=== PATIENT | female | born 1975 | race Caucasian/White ===

== ENCOUNTER 2024-06-23 13:55 | Inpatient (IN) ==
--- NOTE | 2024-06-23 14:50 | XRay Report ---
XR chest 1V portable HISTORY: 48 years-old Female neuro deficit, acute stroke suspected acute strokelike symptoms COMPARISON: None TECHNIQUE: AP view of the chest FINDINGS: Cardiac silhouette is enlarged. Dual lead left subclavian pacer. An electronic device projects over t he left heart border. No pneumothorax, pleural effusion, airspace consolidation or pulmonary edema. B ones appear intact. IMPRESSION: No acute process. ACT 112: Negative or not required by law. The above report was generated using voice recognition software. It may contain grammatical, syntax o r spelling errors. Electronically signed by: Eduardo Feliciano M.D. 06/23/2024 2:48 PM
[2024-06-23 14:51] LABS: Basophils # (auto) 0.01 K/uL (0.00-0.20); Basophils % (auto) 0.2 %; Hematocrit (blood only) 40.6 % (37.0-47.0); Hemoglobin 12.7 g/dl (12.0-16.0); Immature Granulocytes # (auto) 0.01 K/uL (0.01-0.20); Immature Granulocytes % (auto) 0.2 %; Lymphocytes # (auto) 1.44 K/uL (1.20-3.40); Lymphocytes % (auto) 28.1 %; Mean Corpuscular Hemoglobin 28.2 pg (25.0-34.0); Mean Corpuscular Hgb Conc 31.3 g/dL (32.0-36.0); Mean Corpuscular Volume 90.2 fL (80.0-100.0); Mean Platelet Volume 10.7 fL (9.4-12.4); Monocytes # (auto) 0.49 K/uL (0.11-0.59); Monocytes % (auto) 9.6 %; Neutrophils # (auto) 3.18 K/uL (1.40-6.50); Neutrophils % (auto) 61.9 %; Platelet Count 269 K/uL (130-400); RDW Coefficient of Variation 14.4 % (11.5-14.5); RDW Standard Deviation 47.7 fL (36.4-46.3); White Blood Count 5.13 K/ul (4.8-10.8)
[2024-06-23 15:12] LABS: Albumin Globulin Ratio 1.7 (0.9-2); BUN Creatinine Ratio 16.7 (10-20); Bilirubin,Total 0.3 mg/dl (0.2-1.0); Calcium 8.8 mg/dl (8.6-10.3); Creatinine Clr Calc Pharmacy 125.4 ml/min; Globulin 2.4 gm/dl (2.5-4.0); Potassium 4.1 mmol/L (3.5-5.1); Total Protein 6.4 gm/dl (6.0-8.3)
[2024-06-23 15:19] LABS: Troponin I High Sensitivity 5.6 pg/ml (0-14)
--- NOTE | 2024-06-23 15:22 | Emergency Department Note ---
History of Present Illness General Chief complaint: TIA Symptoms Stated complaint: CHEST PAIN, PACE MAKER, LT FACE DROOPING Time Seen by Provider: 06/23/24 14:16 Source: patient, family, RN notes reviewed and old records reviewed (Did review some old records she had from recent visit in [place]) Mode of arrival: ambulatory Limitations: no limitations History of Present Illness Maximum Pain Intensity: 6 This patient is a 48-year-old female who comes in after having chest pain as well as some facial droop. She had a pacemaker placed and do boys this past week feels like it swollen around it she has pain along the pacemaker up the neck and down the arm. She has having chest pain this been going on chronically she noticed around 930 last night she felt like she was weak in the lower left side of her face. No shortness of breath no nausea vomit no fever chills she is on Eliquis for A-fib no fall or trauma she says she feels little tingling in her left arm the feels sleepy. No change in vision. She does have a complex medical history as well. She has never been to this hospital before. Home Medications Medication Instructions Recorded Confirmed Type apixaban 5 mg tablet (Eliquis) 5 mg PO BID 06/23/24 06/23/24 History aripiprazole 15 mg tablet 15 mg PO QAM 06/23/24 06/23/24 History azelastine 137 mcg (0.1 %) nasal 137 mcg intranasal BID 06/23/24 06/23/24 History spray sozfrgrvna-ohhkfznirlxfl-dcrilive See Rx Instructions .Route 06/23/24 06/23/24 History 50 mg-325 mg-40 mg tablet .COMPLEX PRN Headache cetirizine 10 mg tablet See Rx Instructions .Route .COMPLEX 06/23/24 06/23/24 History cholecalciferol (vitamin D3) 50 See Rx Instructions .Route .COMPLEX 06/23/24 06/23/24 History mcg (2,000 unit) capsule (Vitamin D3) clonazepam 0.5 mg tablet See Rx Instructions .Route .COMPLEX 06/23/24 06/23/24 History cyanocobalamin (vitamin B-12) See Rx Instructions .Route .COMPLEX 06/23/24 06/23/24 History 1,000 mcg/mL injection solution duloxetine 60 mg capsule,delayed See Rx Instructions .Route .COMPLEX 06/23/24 06/23/24 History release epinephrine 0.3 mg/0.3 mL See Rx Instructions .Route 06/23/24 06/23/24 History injection, auto-injector .COMPLEX PRN Allergy Symptoms folic acid 1 mg tablet See Rx Instructions .Route .COMPLEX 06/23/24 06/23/24 History interferon beta-1a (albumin) 44 See Rx Instructions .Route .COMPLEX 06/23/24 06/23/24 History mcg/0.5 mL subcutaneous pen injector (Rebif Rebidose) leflunomide 20 mg tablet See Rx Instructions .Route .COMPLEX 06/23/24 06/23/24 History levothyroxine 137 mcg tablet See Rx Instructions .Route .COMPLEX 06/23/24 06/23/24 History lorazepam 0.5 mg tablet See Rx Instructions .Route .COMPLEX 06/23/24 06/23/24 History methocarbamol 500 mg tablet See Rx Instructions .Route .COMPLEX 06/23/24 06/23/24 History metoprolol succinate 25 mg See Rx Instructions .Route .COMPLEX 06/23/24 06/23/24 History tablet,extended release 24 hr modafinil 200 mg tablet See Rx Instructions .Route .COMPLEX 06/23/24 06/23/24 History mometasone-formoterol HFA 100 See Rx Instructions .Route .COMPLEX 06/23/24 06/23/24 History mcg-5 mcg/actuation aerosol inhaler (Dulera) montelukast 10 mg tablet See Rx Instructions .Route .COMPLEX 06/23/24 06/23/24 History omeprazole 40 mg capsule,delayed See Rx Instructions .Route .COMPLEX 06/23/24 06/23/24 History release ondansetron 8 mg disintegrating See Rx Instructions .Route .COMPLEX 06/23/24 06/23/24 History tablet potassium chloride 20 mEq See Rx Instructions .Route .COMPLEX 06/23/24 06/23/24 History tablet,extended release(part/cryst) pregabalin 150 mg capsule See Rx Instructions .Route .COMPLEX 06/23/24 06/23/24 History rimegepant 75 mg disintegrating See Rx Instructions .Route .COMPLEX 06/23/24 06/23/24 History tablet (Nurtec ODT) ropinirole 1 mg tablet See Rx Instructions .Route .COMPLEX 06/23/24 06/23/24 History topiramate 100 mg tablet See Rx Instructions .Route .COMPLEX 06/23/24 06/23/24 History trazodone 150 mg tablet See Rx Instructions .Route .COMPLEX 06/23/24 06/23/24 History trospium 20 mg tablet See Rx Instructions .Route .COMPLEX 06/23/24 06/23/24 History Allergies Allergy/AdvReac Type Severity Reaction Status Date / Time codeine Allergy Severe Anaphylaxis Unverified 06/23/24 16:17 methimazole Allergy Severe Unknown Unverified 06/23/24 16:17 Sulfa (Sulfonamide Allergy Severe Hives Unverified 06/23/24 16:17 Antibiotics) glatiramer (copolymer 1) Allergy Mild Unknown Unverified 06/23/24 16:17 [From Copaxone] hydroxychloroquine AdvReac Severe Blurry Unverified 06/23/24 16:17 [From Plaquenil] Vision NSAIDS (Non-Steroidal AdvReac Severe Unknown Unverified 06/23/24 16:17 Anti-Inflamma Past Med/Surg History Problem List Pacemaker HTN (hypertension) Hypothyroidism Rheumatoid arthritis A-fib Multiple sclerosis Left facial numbness Facial droop Current use of jail anticoagulation (Acute) Chest pain (Acute) Social History Smoking Status: Never smoker Feels Safe at Home: Yes Immunizations: Past med historyasthma, MS, rheumatoid arthritis, gastric bypass, trigeminal neuralgia Allergiesmultiple medications including codeine, sulfa, Copaxone, Plaquenil, Enbrel. Denies any allergies or issues with IV contrast Social history she has a doctor in [place] Review of Systems A total of 10 systems reviewed and were otherwise negative Physical Exam Vital Signs Vital Signs - 24 hr 06/23/24 13:56 06/23/24 16:00 06/23/24 16:13 Temperature 36 C L Temperature Source Temporal Artery Scan Pulse Rate 81 69 Pulse Rate [Apical] 63 Respiratory Rate 18 18 Respiratory Effort / Characteristics Non-Labored Respiratory Depth Normal Respiratory Pattern Regular Blood Pressure 164/94 H Blood Pressure [Right Arm] 142/86 H Blood Pressure Mean 117 Blood Pressure Mean [Right Arm] 104 Pulse Oximetry 99 99 Oxygen Delivery Method Room Air Room Air Sepsis Recent Fever Within 48 Hours No Sepsis New/Unexplained Change in Mental Status N/A Sepsis Action Taken by Nursing No Action Required General: Well developed well nourished middle-age female who appears in no acute distress, breathing comfortably on room air. Normal speech HEENT: Normal cephalic atraumatic. Pupils are equal round and reactive to light. Extraocular movements are intact. Oropharynx is pink with moist mucous membranes. No swelling of the mouth lips or tongue. Questionable facial droop on the left. Neck: Supple with a midline trachea. No meningeal signs or stiffness, no JVD or bruits. No Stridor. Chest: Clear to auscultation bilaterally. No wheezes or rhonchi. No increased work of breathing. She has a pacemaker in left chest multiple Steri-Strips on top of it does appear to be mildly swollen but no note not overtly red or tender. Heart: Regular rate and rhythm without murmurs or gallops. Abdomen: Soft nontender, nondistended without rebound guarding or rigidity. Extremities: No cyanosis clubbing or edema. No calf tenderness or assymetry Spine/Back. Non tender to palpation. No CVA tenderness Skin: Good turgor without rashes. Neurologic exam: Possible mild weakness on the left may be more from swelling. Cranial nerves two through 12 are intact. Motor and sensation are intact and symmetrical throughout. Course Administered Medications Discontinued Medications Ioversol (Optiray 320 125ml) 119 ml IV ONCE ONE Stop: 06/23/24 15:36 Last Admin: 06/23/24 15:36 Dose: 119 ml Documented By: CHANDA Medical Decision Making Differential Diagnosis Complication related to pacemaker placement, DVT, vascular disease, stroke, MS, electrolyte or metabolic abnormality, infection Medical Records Attestation: I reviewed the patient's medical records. Home Medications Current Medication List: was personally reviewed by me Laboratory Data Attestation: I reviewed the patient's lab results. 06/23/24 14:12 06/23/24 14:12 Lab Results 06/23/24 06/23/24 Range/Units 14:12 14:14 WBC 5.13 (4.8-10.8) K/ul RBC 4.50 (4.20-5.40) M/uL Hgb 12.7 (12.0-16.0) g/dl Hct 40.6 (37.0-47.0) % MCV 90.2 (80.0-100.0) fL MCH 28.2 (25.0-34.0) pg MCHC 31.3 L (32.0-36.0) g/dL RDW Std Deviation 47.7 H (36.4-46.3) fL RDW Coeff of Myrna 14.4 (11.5-14.5) % Plt Count 269 (130-400) K/uL MPV 10.7 (9.4-12.4) fL Immature Gran % (Auto) 0.2 % Neut % (Auto) 61.9 % Lymph % (Auto) 28.1 % [place] % (Auto) 9.6 % Eos % (Auto) 0.0 % Baso % (Auto) 0.2 % Neut # (Auto) 3.18 (1.40-6.50) K/uL Lymph # (Auto) 1.44 (1.20-3.40) K/uL [place] # (Auto) 0.49 (0.11-0.59) K/uL Eos # (Auto) 0.00 (0.00-0.50) K/uL Baso # (Auto) 0.01 (0.00-0.20) K/uL Immature Gran # (Auto) 0.01 (0.01-0.20) K/uL PT 10.0 (9.0-12.0) Seconds INR 0.9 (0.9-1.1) APTT 30 (21-31) Seconds PTT Ratio 1.1 Sodium 141 (136-145) mmol/L Potassium 4.1 (3.5-5.1) mmol/L Chloride 116 H (98-107) mmol/L Carbon Dioxide 21 (21-32) mmol/L Anion Gap 4 (3-11) BUN 10 (6-23) mg/dl Creatinine 0.60 (0.6-1.2) mg/dl Est Cr Clr Drug Dosing 125.4 ml/min eGFR 111.34 BUN/Creatinine Ratio 16.7 (10-20) Glucose 75 (70-99(Fasting)) mg/dl POC Glucose 77 (70-99) mg/dl Calcium 8.8 (8.6-10.3) mg/dl Magnesium 2.0 (1.7-2.4) mg/dl Total Bilirubin 0.3 (0.2-1.0) mg/dl AST 21 (13-39) U/L ALT 24 (7-52) U/L Alkaline Phosphatase 104 (34-104) U/L Troponin I High Sens 5.6 (0-14) pg/ml Total Protein 6.4 (6.0-8.3) gm/dl Albumin 4.0 (3.4-5.0) gm/dl Globulin 2.4 L (2.5-4.0) gm/dl Albumin/Globulin Ratio 1.7 (0.9-2) Imaging Data Attestation: I personally reviewed and interpreted this imaging study as follows: My Impression: Chest x-raypacemaker in place no acute infiltrate, failure, pneumothorax seen Radiologist's Impression: Chest X-Ray 06/23/24 14:26 XR chest 1V portable HISTORY: 48 years-old Female neuro deficit, acute stroke suspected acute strokelike symptoms COMPARISON: None TECHNIQUE: AP view of the chest FINDINGS: Cardiac silhouette is enlarged. Dual lead left subclavian pacer. An electronic device projects over the left heart border. No pneumothorax, pleural effusion, airspace consolidation or pulmonary edema. Bones appear intact. IMPRESSION: No acute process. ACT 112: Negative or not required by law. The above report was generated using voice recognition software. It may contain grammatical, syntax or spelling errors. Electronically signed by: Eduardo Feliciano M.D. 06/23/2024 2:[address] 06/23/24 14:26 CT angio head w con, CT head/brain wo con, CT angio neck with con CLINICAL HISTORY: 48 years-old Female with neuro deficit, acute stroke suspected. Acute stroke like symptoms COMPARISON STUDY: None TECHNIQUE: Unenhanced axial CT scan of the brain is performed. Subsequently, following the IV administration of 119 cc of Optiray, CT angiogram of the head and neck was performed. Images are reviewed in the axial, sagittal, and coronal planes. 3-D MIPS images are created and assessed. IV contrast was administered without complication. All measurements were obtained according to NASCET criteria. A dose lowering technique was utilized adhering to the principles of ALARA. FINDINGS: CT BRAIN: There is no acute intracranial hemorrhage, midline shift, hydrocephalus, intracranial mass, territorial ischemia or abnormal extra-axial collections. No abnormal intra-axial or extra-axial enhancement. Mastoid air cells and middle ear cavities are clear. No calvarial fracture. Mild polypoid mucosal thickening of the right maxillary and sphenoid sinuses.. CT ANGIOGRAM OF THE HEAD AND NECK: Three-vessel morphology of the thoracic aortic arch. Patency of the innominate and subclavian arteries. Patency of the common and internal carotid arteries. Bilateral anterior and middle cerebral arteries are also patent. The vertebrobasilar system and posterior cerebral arteries are widely patent. There is no aneurysm, high-grade stenosis, or proximal branch occlusion identified. Dural sinuses appear patent. The lung apices appear clear. Developmental incomplete bony fusion involves the arch of C1. No pneumothorax. Mild bronchial wall thickening. 3 mm likely benign right upper lobe pulmonary nodule on image 13 series 9 with additional 3 mm nodule of the left upper lobe on image 15 series 9. Left subclavian pacer with adjacent inflammatory stranding and trace subcutaneous emphysema, likely postprocedural. IMPRESSION: 1. Unremarkable CTA of the head and neck. 2. No acute intracranial abnormality. 3. Please refer to the same day CTA of the chest for additional findings. 4. Mild paranasal sinus disease. ACT 112: Negative or not required by law. The above report was generated using voice recognition software. It may contain grammatical, syntax or spelling errors. Electronically signed by: Eduardo Feliciano M.D. 06/23/2024 4:20 PM Head CTA 06/23/24 14:26 CT angio head w con, CT head/brain wo con, CT angio neck with con CLINICAL HISTORY: 48 years-old Female with neuro deficit, acute stroke suspected. Acute stroke like symptoms COMPARISON STUDY: None TECHNIQUE: Unenhanced axial CT scan of the brain is performed. Subsequently, following the IV administration of 119 cc of Optiray, CT angiogram of the head and neck was performed. Images are reviewed in the axial, sagittal, and coronal planes. 3-D MIPS images are created and assessed. IV contrast was administered without complication. All measurements were obtained according to NASCET criteria. A dose lowering technique was utilized adhering to the principles of ALARA. FINDINGS: CT BRAIN: There is no acute intracranial hemorrhage, midline shift, hydrocephalus, intracranial mass, territorial ischemia or abnormal extra-axial collections. No abnormal intra-axial or extra-axial enhancement. Mastoid air cells and middle ear cavities are clear. No calvarial fracture. Mild polypoid mucosal thickening of the right maxillary and sphenoid sinuses.. CT ANGIOGRAM OF THE HEAD AND NECK: Three-vessel morphology of the thoracic aortic arch. Patency of the innominate and subclavian arteries. Patency of the common and internal carotid arteries. Bilateral anterior and middle cerebral arteries are also patent. The vertebrobasilar system and posterior cerebral arteries are widely patent. There is no aneurysm, high-grade stenosis, or proximal branch occlusion identified. Dural sinuses appear patent. The lung apices appear clear. Developmental incomplete bony fusion involves the arch of C1. No pneumothorax. Mild bronchial wall thickening. 3 mm likely benign right upper lobe pulmonary nodule on image 13 series 9 with additional 3 mm nodule of the left upper lobe on image 15 series 9. Left subclavian pacer with adjacent inflammatory stranding and trace subcutaneous emphysema, likely postprocedural. IMPRESSION: 1. Unremarkable CTA of the head and neck. 2. No acute intracranial abnormality. 3. Please refer to the same day CTA of the chest for additional findings. 4. Mild paranasal sinus disease. ACT 112: Negative or not required by law. The above report was generated using voice recognition software. It may contain grammatical, syntax or spelling errors. Electronically signed by: Eduardo Feliciano M.D. 06/23/2024 4:20 PM Neck CTA 06/23/24 14:26 CT angio head w con, CT head/brain wo con, CT angio neck with con CLINICAL HISTORY: 48 years-old Female with neuro deficit, acute stroke suspected. Acute stroke like symptoms COMPARISON STUDY: None TECHNIQUE: Unenhanced axial CT scan of the brain is performed. Subsequently, following the IV administration of 119 cc of Optiray, CT angiogram of the head and neck was performed. Images are reviewed in the axial, sagittal, and coronal planes. 3-D MIPS images are created and assessed. IV contrast was administered without complication. All measurements were obtained according to NASCET criteria. A dose lowering technique was utilized adhering to the principles of ALARA. FINDINGS: CT BRAIN: There is no acute intracranial hemorrhage, midline shift, hydrocephalus, intracranial mass, territorial ischemia or abnormal extra-axial collections. No abnormal intra-axial or extra-axial enhancement. Mastoid air cells and middle ear cavities are clear. No calvarial fracture. Mild polypoid mucosal thickening of the right maxillary and sphenoid sinuses.. CT ANGIOGRAM OF THE HEAD AND NECK: Three-vessel morphology of the thoracic aortic arch. Patency of the innominate and subclavian arteries. Patency of the common and internal carotid arteries. Bilateral anterior and middle cerebral arteries are also patent. The vertebrobasilar system and posterior cerebral arteries are widely patent. There is no aneurysm, high-grade stenosis, or proximal branch occlusion identified. Dural sinuses appear patent. The lung apices appear clear. Developmental incomplete bony fusion involves the arch of C1. No pneumothorax. Mild bronchial wall thickening. 3 mm likely benign right upper lobe pulmonary nodule on image 13 series 9 with additional 3 mm nodule of the left upper lobe on image 15 series 9. Left subclavian pacer with adjacent inflammatory stranding and trace subcutaneous emphysema, likely postprocedural. IMPRESSION: 1. Unremarkable CTA of the head and neck. 2. No acute intracranial abnormality. 3. Please refer to the same day CTA of the chest for additional findings. 4. Mild paranasal sinus disease. ACT 112: Negative or not required by law. The above report was generated using voice recognition software. It may contain grammatical, syntax or spelling errors. Electronically signed by: Eduardo Feliciano M.D. 06/23/2024 4:20 PM Chest CTA 06/23/24 14:35 CT angio chest PE protocol CT DOSE: 2099.25 mGy.cm HISTORY: 48 years-old Female with recent pacemaker placed, swell and left facial wea. Acute chest pain with recent pacemaker placement TECHNIQUE: Multiple CTA images of the chest were obtained after the intravenous administration of 119 ml Optiray. Coronal and sagittal MIPS were obtained from the axial data set and were submitted for review. All measurements were obtained according to NASCET criteria. A dose lowering technique was utilized adhering to the principles of ALARA. COMPARISON: Chest radiograph of same day FINDINGS: CTA: Dual-lead left subclavian pacer. Electronic implantable device noted within the subcutaneous tissues of the left chest wall. Heart is borderline enlarged. No pericardial effusion. No thoracic aortic aneurysm or dissection. Central pulmonary emboli identified. The segmental and subsegmental branches are not well visualized secondary to contrast bolus timing. CT CHEST: Subcutaneous edema of the left chest wall with small focus of subcutaneous emphysema, likely postoperative. No pneumothorax, pleural effusion, airspace consolidation, overt pulmonary edema suspicious pulmonary nodule or mass. Mild rotator wall thickening. No acute upper abdominal abnormality-bypass. Nonspecific 11 mm arterially enhancing left hepatic lobe lesion on image 25, possibly a flash filling hemangioma. Cholecystectomy. Fracture. IMPRESSION: 1. Findings compatible with recent left subclavian cardiac pacer placement with expected postoperative changes. No postoperative fluid collection. 2. No pulmonary emboli identified. ACT 112: Negative or not required by law. The above report was generated using voice recognition software. It may contain grammatical, syntax or spelling errors. Electronically signed by: Eduardo Feliciano M.D. 06/23/2024 4:07 PM ECG Data Attestation: I personally reviewed and interpreted this ECG as follows: Indication: + chest pain Rate (beats per minute): 75 Rhythm: + normal sinus ECG Intervals/blocks: + Normal QRS, + Normal QT, + Normal RI and + Normal QT-c ECG [place]: + Normal ECG ST segments: + Normal ST segments ECG Findings: + Other (Somewhat low voltage) Comparison ECG Date: no prior available MDM Narrative This patient comes in described above. She was placed on a potline monitor and room B5 she is a complex history and several different complaints. she recently a pacemaker placed and she also has a history of MS. She feels she has some weakness on her face she is also had some pain along the chest that seems to be mostly postop there is some swelling but it is not overtly red she has no fever here. I did a extensive workup including neuroimaging as well as an image of the vasculature of the the neck as well as a chest CT to make sure there is no vascular issues as well as neurologic issues or infection. IV access was established. EKG shows no ischemic changes or ectopy. Chest x-ray shows no pneumothorax ,CHF, or pneumonia. I do not think this is likely a stroke although that still in the differential. Even if it were to be a stroke , she is outside the lytic window as her last known well was 930 additionally. she is a contraindication for lytics and the fact that she is on a blood thinner. Troponin was normal. She has no white count or fever to suggest infection. she has no significant anemia. She has no significant electrolyte or metabolic abnormalities. CAT scan of her head as well as CT angiography of the head and neck do not show any acute neuro or vascular issues. CT angio of the chest shows no PE or any significant abnormalities along with the pacemaker. I went and talked to her she has been having continuing chest pain and also some tingling in her neck and arm. She also feels like she is numb in the left side of her face. She may need a further neuro or cardiac workup and further evaluation. I have discussed the case at length in consultation with Dr. Walsh, who is the [facility] hospitalist. The patient will be admitted/observed for these measures Continuous cardiac monitoring: Orders placed in EMR for continuous potline monitor: Upon my evaluation patient noted to be normal sinus rhythm rate of 70 Impression & Plan Chest pain, Current use of remote computer terminal operator anticoagulation, Pacemaker, Left facial numbness Discharge Plan Visit Data Chief Complaint: TIA Symptoms Stated Complaint: CHEST PAIN, PACE MAKER, LT FACE DROOPING ED Provider: Lucien Solano Discharge Problem: Chest pain, Current use of remote computer terminal operator anticoagulation, Pacemaker, Left facial numbness Forms Stand Alone Forms: My [facility] Prescriptions Prescriptions: No Action methocarbamol 500 mg tablet See Rx Instructions .ROUTE .COMPLEX Rx Instructions: Take 1 tablet by mouth twice a day levothyroxine 137 mcg tablet See Rx Instructions .ROUTE .COMPLEX Rx Instructions: TAKE ONE TABLET BY MOUTH DAILY ropinirole 1 mg tablet See Rx Instructions .ROUTE .COMPLEX Rx Instructions: Take 1 tablet by mouth twice a day cetirizine 10 mg tablet See Rx Instructions .ROUTE .COMPLEX Rx Instructions: TAKE 1 TABLET BY MOUTH DAILY clonazepam 0.5 mg tablet See Rx Instructions .ROUTE .COMPLEX Rx Instructions: Take 1 tablet by mouth twice a day omeprazole 40 mg capsule,delayed release(DR/EC) See Rx Instructions .ROUTE .COMPLEX Rx Instructions: Take 1 capsule by mouth once a day 30 MINUTES PRIOR TO BREAKFAST EVERY DAY. leflunomide 20 mg tablet See Rx Instructions .ROUTE .COMPLEX Rx Instructions: TAKE 1 TABLET BY MOUTH DAILY WITH FOOD gtyxnufnow-fdlyqzuarsgci-sjjm 50-325-40 mg tablet See Rx Instructions .ROUTE .COMPLEX PRN (Reason: Headache) Rx Instructions: TAKE 1 TO 2 TABLETS BY MOUTH EVERY 4 HOURS NEEDED FOR MIGRAINES. MAXIMUM 6 TABLETS PER DAY. CONTINUING THERAPY ondansetron 8 mg tablet,disintegrating See Rx Instructions .ROUTE .COMPLEX Rx Instructions: DISSOLVE 1 TABLET ON TONGUE EVERY 8 HOURS NEEDED FOR NAUSEA potassium chloride 20 mEq tablet,ER particles/crystals See Rx Instructions .ROUTE .COMPLEX Rx Instructions: TAKE ONE TABLET TWICE DAILY modafinil 200 mg tablet See Rx Instructions .ROUTE .COMPLEX Rx Instructions: Take 1/2 tablet by mouth every morning lorazepam 0.5 mg tablet See Rx Instructions .ROUTE .COMPLEX Rx Instructions: TAKE ONE TABLET BY MOUTH TWICE DAILY FOR ANXIETY AND TAKE 1 OR 2 TABLETS AT BEDTIME FOR SLEEP cyanocobalamin (vitamin B-12) 1,000 mcg/mL solution See Rx Instructions .ROUTE .COMPLEX Rx Instructions: inject 1ml subcutaneousley ONCE WEEKLY trazodone 150 mg tablet See Rx Instructions .ROUTE .COMPLEX Rx Instructions: Take 1 tablet by mouth every night at bedtime as needed for sleep folic acid 1 mg tablet See Rx Instructions .ROUTE .COMPLEX Rx Instructions: TAKE ONE TABLET DAILY montelukast 10 mg tablet See Rx Instructions .ROUTE .COMPLEX Rx Instructions: Take 1 tablet by mouth once a day metoprolol succinate 25 mg tablet extended release 24 hr See Rx Instructions .ROUTE .COMPLEX Rx Instructions: TAKE ONE TABLET BY MOUTH DAILY azelastine 137 mcg (0.1 %) spray,non-aerosol 137 mcg intranasal BID epinephrine 0.3 mg/0.3 mL auto-injector See Rx Instructions .ROUTE .COMPLEX PRN (Reason: Allergy Symptoms) Rx Instructions: EPI PEN topiramate 100 mg tablet See Rx Instructions .ROUTE .COMPLEX Rx Instructions: TAKE ONE TABLET BY MOUTH TWICE DAILY aripiprazole 15 mg tablet 15 mg PO QAM trospium 20 mg tablet See Rx Instructions .ROUTE .COMPLEX Rx Instructions: TAKE ONE TABLET BY MOUTH TWICE DAILY duloxetine 60 mg capsule,delayed release(DR/EC) See Rx Instructions .ROUTE .COMPLEX Rx Instructions: Take 1 capsule by mouth twice a day pregabalin 150 mg capsule See Rx Instructions .ROUTE .COMPLEX Rx Instructions: TAKE ONE CAPSULE BY MOUTH TWICE DAILY cholecalciferol (vitamin D3) [Vitamin D3] 50 mcg (2,000 unit) capsule See Rx Instructions .ROUTE .COMPLEX Rx Instructions: TAKE ONE CAPSULE BY MOUTH DAILY Dulera 100-5 mcg/actuation HFA aerosol inhaler See Rx Instructions .ROUTE .COMPLEX Rx Instructions: Inhale 1 puff as directed twice a day Rinse mouth with water and spit after use. Eliquis 5 mg tablet 5 mg PO BID Rebif Rebidose 44 mcg/0.5 mL pen injector See Rx Instructions .ROUTE .COMPLEX Rx Instructions: INJECT BID A WEEK Nurtec ODT 75 mg tablet,disintegrating See Rx Instructions .ROUTE .COMPLEX Rx Instructions: TAKE 1 TABLET BY MOUTH EVERY OTHER DAY Referrals Referrals: Brant Magaña MD [Primary Care Provider] - Discharge Problem: Chest pain Qualifiers: Chest pain type: unspecified Qualified Code(s): R07.9 - Chest pain, unspecified
[2024-06-23 15:35] LABS: INR 0.9 (0.9-1.1); Partial Thromboplastin Ratio 1.1; Partial Thromboplastin Time 30 Seconds (21-31)
[2024-06-23] MEDS: OPTIRAY 320 125ml IV ONE (15:36)
--- NOTE | 2024-06-23 16:09 | CT Scan Report ---
CT angio chest PE protocol CT DOSE: 2099.25 mGy.cm HISTORY: 48 years-old Female with recent pacemaker placed, swell and left facial wea. Acute chest p ain with recent pacemaker placement TECHNIQUE: Multiple CTA images of the chest were obtained after the intravenous administration of 119 ml Optiray. Coronal and sagittal MIPS were obtained from the axial data set and were submitted for review. All measurements were obtained according to NASCET criteria. A dose lowering technique was u tilized adhering to the principles of ALARA. COMPARISON: Chest radiograph of same day FINDINGS: CTA: Dual-lead left subclavian pacer. Electronic implantable device noted within the subcutaneous tissues of the left chest wall. Heart is borderline enlarged. No pericardial effusion. No thoracic aortic ane urysm or dissection. Central pulmonary emboli identified. The segmental and subsegmental branches are not well visualized secondary to contrast bolus timing. CT CHEST: Subcutaneous edema of the left chest wall with small focus of subcutaneous emphysema, likely postoper ative. No pneumothorax, pleural effusion, airspace consolidation, overt pulmonary edema suspicious pu lmonary nodule or mass. Mild rotator wall thickening. No acute upper abdominal abnormality-bypass. No nspecific 11 mm arterially enhancing left hepatic lobe lesion on image 25, possibly a flash filling h emangioma. Cholecystectomy. Fracture. IMPRESSION: 1. Findings compatible with recent left subclavian cardiac pacer placement with expected postoperativ e changes. No postoperative fluid collection. 2. No pulmonary emboli identified. ACT 112: Negative or not required by law. The above report was generated using voice recognition software. It may contain grammatical, syntax o r spelling errors. Electronically signed by: Eduardo Feliciano M.D. 06/23/2024 4:07 PM
--- NOTE | 2024-06-23 16:22 | CT Scan Report ---
CT angio head w con, CT head/brain wo con, CT angio neck with con CLINICAL HISTORY: 48 years-old Female with neuro deficit, acute stroke suspected. Acute stroke lik e symptoms COMPARISON STUDY: None TECHNIQUE: Unenhanced axial CT scan of the brain is performed. Subsequently, following the IV adminis tration of 119 cc of Optiray, CT angiogram of the head and neck was performed. Images are reviewed in the axial, sagittal, and coronal planes. 3-D MIPS images are created and assessed. IV contrast was a dministered without complication. All measurements were obtained according to NASCET criteria. A dose lowering technique was utilized adhering to the principles of ALARA. FINDINGS: CT BRAIN: There is no acute intracranial hemorrhage, midline shift, hydrocephalus, intracranial mass, territori al ischemia or abnormal extra-axial collections. No abnormal intra-axial or extra-axial enhancement. Mastoid air cells and middle ear cavities are clear. No calvarial fracture. Mild polypoid mucosal th ickening of the right maxillary and sphenoid sinuses.. CT ANGIOGRAM OF THE HEAD AND NECK: Three-vessel morphology of the thoracic aortic arch. Patency of the innominate and subclavian arterie s. Patency of the common and internal carotid arteries. Bilateral anterior and middle cerebral arteri es are also patent. The vertebrobasilar system and posterior cerebral arteries are widely patent. The re is no aneurysm, high-grade stenosis, or proximal branch occlusion identified. Dural sinuses appear patent. The lung apices appear clear. Developmental incomplete bony fusion involves the arch of C1. No pneumo thorax. Mild bronchial wall thickening. 3 mm likely benign right upper lobe pulmonary nodule on image 13 series 9 with additional 3 mm nodule of the left upper lobe on image 15 series 9. Left subclavian pacer with adjacent inflammatory stranding and trace subcutaneous emphysema, likely postprocedural. IMPRESSION: 1. Unremarkable CTA of the head and neck. 2. No acute intracranial abnormality. 3. Please refer to the same day CTA of the chest for additional findings. 4. Mild paranasal sinus disease. ACT 112: Negative or not required by law. The above report was generated using voice recognition software. It may contain grammatical, syntax o r spelling errors. Electronically signed by: Eduardo Feliciano M.D. 06/23/2024 4:20 PM
--- NOTE | 2024-06-23 18:12 | History & Physical Report ---
Date of Service June 23, 2024 Assessment & Plan (1) Facial droop: (2) Left facial numbness: (3) Multiple sclerosis: (4) A-fib: (5) Rheumatoid arthritis: (6) Hypothyroidism: (7) HTN (hypertension): (8) Pacemaker: Plan: Plan This is a 48 y/o with complex medical history who comes in with multiple complaints including facial weakness/numbness, L arm numbness, and pain at site of pacemaker recently placed among other issues. 1) Facial droop/numbness and tingling/arm numbness and tingling -- subacute CVA or TIA vs. Lopez's Palsy vs. MS or migraine related symptoms unclear at this time -Will monitor on tele for now -Cont neuro checks -Discussed with Dr. Raza (neuro) -- he agreed that it was reasonable to proceed with getting an MRI with and without contrast to better determine cause of symptoms given the MS history -MRI w and wo ordered. MRI card for pacemaker is copied in this note -Cont thiamine and folic acid 2) s/p recent placement of pacemaker -- pain at site of PM, no redness, no drainage, no findings on imaging -Monitor incision site for now -- if any sign of infection, would need to cover with abx and likely contact the Cardiology at [place] -Pain control as needed 3) A fib (controlled) -Continue Eliquis 5 mg bid -Metoprolol 25 mg BID 4) MS -Patient is currently on Rebif Rebidose 44 mcg three times weekly per her medication list; may need to bring from home if not available in pharmacy 5) RA -Will continue home Leflunomide 20 mg daily 6) Hypothyroidism -Continue Synthroid 137 mcg daily 7) Mood disorder -- anxiety/depression/Psychiatric dx -Continue Abilify 15 mg daily -Cont Duloxetine 60 mg daily -Cont Klonopin 0.5 BID -Cont Modafinil 100 mg daily -Cont Trazodone 150 mg daily -Patient states she does not have a dx of seizures anymore, but on Topiramate 100 mg BID, presumably for mood stabilization 8) DVT PPx -- On Eliquis 9) Code Status -- Full code History of Present Illness Chief Complaint: Facial numbness/droop Primary Care Provider: Brant Magaña MD This is a 48-year-old female with extensive past medical history including MS (on Rebif Rebido), rheumatoid arthritis (on leflunomide), A-fib (on Eliquis), recent pacemaker placement for syncope/heart block (?), hypothyroidism, migraine headaches, hypertension, and mood disorder among other medical conditions who comes in with multiple complaints including weakness in the face, numbness and tingling of the face and left arm,left-sided facial droop, andpain in chest at site of recent pacemaker. Patient's recent history of the following: She states that last week she was at some sort of festival or event where she had an episode of syncope. She has a loop recorder which showed a sinus pause. She was taking to [facility], and after workup was released. She then contacted her groover and turner on Tuesday, and he had her brought in and had a pacemaker placed on Tuesday. She was discharged on Tuesday afternoon in stable condition. She states she was doing okay at home other than some pain in the left chest at the site of the pacemaker. Last night she states that she developed some weakness, possibly numbness and tingling of her face, as well as possibly in the left arm. She also had some pain in the left chest that she thought was worsening. And she noted possible facial droop (though this may have been noticed this morning). Patient denies any headache. Denies any visual disturbance or visual loss. Denies any difficulty with speech or swallowing. Denies any focal weakness in 1 arm or 1 leg. Denies chest pain. Patient denies any fevers, chills, nausea, vomiting, diarrhea. While she does note some pain at the pacemaker site, there is no significant redness there. There is no drainage. There is no purulence. Patient notes that her last MS flare was in approximately 2020, and she has otherwise been stable on her medications since then. Allergies Allergy/AdvReac Type Severity Reaction Status Date / Time codeine Allergy Severe Anaphylaxis Unverified 06/23/24 16:17 methimazole Allergy Severe Unknown Unverified 06/23/24 16:17 Sulfa (Sulfonamide Allergy Severe Hives Unverified 06/23/24 16:17 Antibiotics) glatiramer (copolymer 1) Allergy Mild Unknown Unverified 06/23/24 16:17 [From Copaxone] hydroxychloroquine AdvReac Severe Blurry Unverified 06/23/24 16:17 [From Plaquenil] Vision NSAIDS (Non-Steroidal AdvReac Severe Unknown Unverified 06/23/24 16:17 Anti-Inflamma Home Medications Medication Instructions Recorded Confirmed Type apixaban 5 mg tablet (Eliquis) 5 mg PO BID 06/23/24 06/23/24 History aripiprazole 15 mg tablet 15 mg PO QAM 06/23/24 06/23/24 History azelastine 137 mcg (0.1 %) nasal 137 mcg intranasal BID 06/23/24 06/23/24 History spray [id number] See Rx Instructions .Route 06/23/24 06/23/24 History 50 mg-325 mg-40 mg tablet .COMPLEX PRN Headache cetirizine 10 mg tablet See Rx Instructions .Route .COMPLEX 06/23/24 06/23/24 History cholecalciferol (vitamin D3) 50 See Rx Instructions .Route .COMPLEX 06/23/24 06/23/24 History mcg (2,000 unit) capsule (Vitamin D3) clonazepam 0.5 mg tablet See Rx Instructions .Route .COMPLEX 06/23/24 06/23/24 History cyanocobalamin (vitamin B-12) See Rx Instructions .Route .COMPLEX 06/23/24 06/23/24 History 1,000 mcg/mL injection solution duloxetine 60 mg capsule,delayed See Rx Instructions .Route .COMPLEX 06/23/24 06/23/24 History release epinephrine 0.3 mg/0.3 mL See Rx Instructions .Route 06/23/24 06/23/24 History injection, auto-injector .COMPLEX PRN Allergy Symptoms folic acid 1 mg tablet See Rx Instructions .Route .COMPLEX 06/23/24 06/23/24 History interferon beta-1a (albumin) 44 See Rx Instructions .Route .COMPLEX 06/23/24 06/23/24 History mcg/0.5 mL subcutaneous pen injector (Rebif Rebidose) leflunomide 20 mg tablet See Rx Instructions .Route .COMPLEX 06/23/24 06/23/24 History levothyroxine 137 mcg tablet See Rx Instructions .Route .COMPLEX 06/23/24 06/23/24 History lorazepam 0.5 mg tablet See Rx Instructions .Route .COMPLEX 06/23/24 06/23/24 History methocarbamol 500 mg tablet See Rx Instructions .Route .COMPLEX 06/23/24 06/23/24 History metoprolol succinate 25 mg See Rx Instructions .Route .COMPLEX 06/23/24 06/23/24 History tablet,extended release 24 hr modafinil 200 mg tablet See Rx Instructions .Route .COMPLEX 06/23/24 06/23/24 History mometasone-formoterol HFA 100 See Rx Instructions .Route .COMPLEX 06/23/24 06/23/24 History mcg-5 mcg/actuation aerosol inhaler (Dulera) montelukast 10 mg tablet See Rx Instructions .Route .COMPLEX 06/23/24 06/23/24 History omeprazole 40 mg capsule,delayed See Rx Instructions .Route .COMPLEX 06/23/24 06/23/24 History release ondansetron 8 mg disintegrating See Rx Instructions .Route .COMPLEX 06/23/24 06/23/24 History tablet potassium chloride 20 mEq See Rx Instructions .Route .COMPLEX 06/23/24 06/23/24 History tablet,extended release(part/cryst) pregabalin 150 mg capsule See Rx Instructions .Route .COMPLEX 06/23/24 06/23/24 History rimegepant 75 mg disintegrating See Rx Instructions .Route .COMPLEX 06/23/24 06/23/24 History tablet (Nurtec ODT) ropinirole 1 mg tablet See Rx Instructions .Route .COMPLEX 06/23/24 06/23/24 History topiramate 100 mg tablet See Rx Instructions .Route .COMPLEX 06/23/24 06/23/24 History trazodone 150 mg tablet See Rx Instructions .Route .COMPLEX 06/23/24 06/23/24 History trospium 20 mg tablet See Rx Instructions .Route .COMPLEX 06/23/24 06/23/24 History Past Med/Surg History Problem List Pacemaker HTN (hypertension) Hypothyroidism Rheumatoid arthritis A-fib Multiple sclerosis Left facial numbness Facial droop Current use of intermediate anticoagulation (Acute) Chest pain (Acute) Social History Smoking Status: Never smoker Feels Safe at Home: Yes Review of Systems 2 Review of Systems: All systems reviewed & are unremarkable except as noted in HPI & below Cardiovascular: Additional Comments: Pain at pacemaker site Neurologic: L sided numbness/tingling/weakness, facial droop Physical Exam 2 Constitutional: WD/WN, vitals as above Eyes: PERRL, conjunctivae normal, anicteric sclerae ENMT: L sided facial droop. Patient unable to close mouth and puff cheeks Neck: trachea midline, no thyromegaly Respiratory: normal respiratory effort, lungs clear to auscultation Cardiovascular: RRR, no murmur, no edema L chest wall with pacemaker incision noted. Steri strips in place. No obvious redness. No wound dehiscence. No drainage. Gastrointestinal (Abdomen): normal bowel sounds, soft, nontender, no hepatosplenomegaly Musculoskeletal: no cyanosis or clubbing, extremities motor strength 5/5 Skin: no rashes, warm and dry Neurologic: L sided facial droop. Patient unable to close mouth and puff cheeks. No other focal findings. Psychiatric: A+Ox3, euthymic affect Results & Data Results & Data Vital Signs (Past 12 Hours) Vital Signs Temp Pulse Pulse Resp BP BP Pulse Ox 06/23/24 16:13 69 06/23/24 16:00 63 18 142/86 H 99 06/23/24 13:56 36 C L 81 18 164/94 H 99 O2 Del Method 06/23/24 16:13 06/23/24 16:00 Room Air 06/23/24 13:56 Room Air Laboratory Results 06/23/24 06/23/24 14:14 14:12 WBC 5.13 RBC 4.50 Hgb 12.7 Hct 40.6 MCV 90.2 MCH 28.2 MCHC 31.3 L RDW Std Deviation 47.7 H RDW Coeff of Myrna 14.4 Plt Count 269 MPV 10.7 Immature Gran % (Auto) 0.2 Neut % (Auto) 61.9 Lymph % (Auto) 28.1 [place] % (Auto) 9.6 Eos % (Auto) 0.0 Baso % (Auto) 0.2 Neut # (Auto) 3.18 Lymph # (Auto) 1.44 [place] # (Auto) 0.49 Eos # (Auto) 0.00 Baso # (Auto) 0.01 Immature Gran # (Auto) 0.01 PT 10.0 INR 0.9 APTT 30 PTT Ratio 1.1 Sodium 141 Potassium 4.1 Chloride 116 H Carbon Dioxide 21 Anion Gap 4 BUN 10 Creatinine 0.60 Est Cr Clr Drug Dosing 125.4 eGFR 111.34 BUN/Creatinine Ratio 16.7 Glucose 75 POC Glucose 77 Calcium 8.8 Magnesium 2.0 Total Bilirubin 0.3 AST 21 ALT 24 Alkaline Phosphatase 104 Troponin I High Sens 5.6 Total Protein 6.4 Albumin 4.0 Globulin 2.4 L Albumin/Globulin Ratio 1.7 Diagnostic Findings Laboratory Results Impressions Chest X-Ray 06/23/24 14:26 XR chest 1V portable HISTORY: 48 years-old Female neuro deficit, acute stroke suspected acute strokelike symptoms COMPARISON: None TECHNIQUE: AP view of the chest FINDINGS: Cardiac silhouette is enlarged. Dual lead left subclavian pacer. An electronic device projects over the left heart border. No pneumothorax, pleural effusion, airspace consolidation or pulmonary edema. Bones appear intact. IMPRESSION: No acute process. ACT 112: Negative or not required by law. The above report was generated using voice recognition software. It may contain grammatical, syntax or spelling errors. Electronically signed by: Eduardo Feliciano M.D. 06/23/2024 2:[address] 06/23/24 14:26 CT angio head w con, CT head/brain wo con, CT angio neck with con CLINICAL HISTORY: 48 years-old Female with neuro deficit, acute stroke suspected. Acute stroke like symptoms COMPARISON STUDY: None TECHNIQUE: Unenhanced axial CT scan of the brain is performed. Subsequently, following the IV administration of 119 cc of Optiray, CT angiogram of the head and neck was performed. Images are reviewed in the axial, sagittal, and coronal planes. 3-D MIPS images are created and assessed. IV contrast was administered without complication. All measurements were obtained according to NASCET criteria. A dose lowering technique was utilized adhering to the principles of ALARA. FINDINGS: CT BRAIN: There is no acute intracranial hemorrhage, midline shift, hydrocephalus, intracranial mass, territorial ischemia or abnormal extra-axial collections. No abnormal intra-axial or extra-axial enhancement. Mastoid air cells and middle ear cavities are clear. No calvarial fracture. Mild polypoid mucosal thickening of the right maxillary and sphenoid sinuses.. CT ANGIOGRAM OF THE HEAD AND NECK: Three-vessel morphology of the thoracic aortic arch. Patency of the innominate and subclavian arteries. Patency of the common and internal carotid arteries. Bilateral anterior and middle cerebral arteries are also patent. The vertebrobasilar system and posterior cerebral arteries are widely patent. There is no aneurysm, high-grade stenosis, or proximal branch occlusion identified. Dural sinuses appear patent. The lung apices appear clear. Developmental incomplete bony fusion involves the arch of C1. No pneumothorax. Mild bronchial wall thickening. 3 mm likely benign right upper lobe pulmonary nodule on image 13 series 9 with additional 3 mm nodule of the left upper lobe on image 15 series 9. Left subclavian pacer with adjacent inflammatory stranding and trace subcutaneous emphysema, likely postprocedural. IMPRESSION: 1. Unremarkable CTA of the head and neck. 2. No acute intracranial abnormality. 3. Please refer to the same day CTA of the chest for additional findings. 4. Mild paranasal sinus disease. ACT 112: Negative or not required by law. The above report was generated using voice recognition software. It may contain grammatical, syntax or spelling errors. Electronically signed by: Eduardo Feliciano M.D. 06/23/2024 4:20 PM Head CTA 06/23/24 14:26 CT angio head w con, CT head/brain wo con, CT angio neck with con CLINICAL HISTORY: 48 years-old Female with neuro deficit, acute stroke suspected. Acute stroke like symptoms COMPARISON STUDY: None TECHNIQUE: Unenhanced axial CT scan of the brain is performed. Subsequently, following the IV administration of 119 cc of Optiray, CT angiogram of the head and neck was performed. Images are reviewed in the axial, sagittal, and coronal planes. 3-D MIPS images are created and assessed. IV contrast was administered without complication. All measurements were obtained according to NASCET criteria. A dose lowering technique was utilized adhering to the principles of ALARA. FINDINGS: CT BRAIN: There is no acute intracranial hemorrhage, midline shift, hydrocephalus, intracranial mass, territorial ischemia or abnormal extra-axial collections. No abnormal intra-axial or extra-axial enhancement. Mastoid air cells and middle ear cavities are clear. No calvarial fracture. Mild polypoid mucosal thickening of the right maxillary and sphenoid sinuses.. CT ANGIOGRAM OF THE HEAD AND NECK: Three-vessel morphology of the thoracic aortic arch. Patency of the innominate and subclavian arteries. Patency of the common and internal carotid arteries. Bilateral anterior and middle cerebral arteries are also patent. The vertebrobasilar system and posterior cerebral arteries are widely patent. There is no aneurysm, high-grade stenosis, or proximal branch occlusion identified. Dural sinuses appear patent. The lung apices appear clear. Developmental incomplete bony fusion involves the arch of C1. No pneumothorax. Mild bronchial wall thickening. 3 mm likely benign right upper lobe pulmonary nodule on image 13 series 9 with additional 3 mm nodule of the left upper lobe on image 15 series 9. Left subclavian pacer with adjacent inflammatory stranding and trace subcutaneous emphysema, likely postprocedural. IMPRESSION: 1. Unremarkable CTA of the head and neck. 2. No acute intracranial abnormality. 3. Please refer to the same day CTA of the chest for additional findings. 4. Mild paranasal sinus disease. ACT 112: Negative or not required by law. The above report was generated using voice recognition software. It may contain grammatical, syntax or spelling errors. Electronically signed by: Eduardo Felicaino M.D. 06/23/2024 4:20 PM Neck CTA 06/23/24 14:26 CT angio head w con, CT head/brain wo con, CT angio neck with con CLINICAL HISTORY: 48 years-old Female with neuro deficit, acute stroke suspected. Acute stroke like symptoms COMPARISON STUDY: None TECHNIQUE: Unenhanced axial CT scan of the brain is performed. Subsequently, following the IV administration of 119 cc of Optiray, CT angiogram of the head and neck was performed. Images are reviewed in the axial, sagittal, and coronal planes. 3-D MIPS images are created and assessed. IV contrast was administered without complication. All measurements were obtained according to NASCET criteria. A dose lowering technique was utilized adhering to the principles of ALARA. FINDINGS: CT BRAIN: There is no acute intracranial hemorrhage, midline shift, hydrocephalus, intracranial mass, territorial ischemia or abnormal extra-axial collections. No abnormal intra-axial or extra-axial enhancement. Mastoid air cells and middle ear cavities are clear. No calvarial fracture. Mild polypoid mucosal thickening of the right maxillary and sphenoid sinuses.. CT ANGIOGRAM OF THE HEAD AND NECK: Three-vessel morphology of the thoracic aortic arch. Patency of the innominate and subclavian arteries. Patency of the common and internal carotid arteries. Bilateral anterior and middle cerebral arteries are also patent. The vertebrobasilar system and posterior cerebral arteries are widely patent. There is no aneurysm, high-grade stenosis, or proximal branch occlusion identified. Dural sinuses appear patent. The lung apices appear clear. Developmental incomplete bony fusion involves the arch of C1. No pneumothorax. Mild bronchial wall thickening. 3 mm likely benign right upper lobe pulmonary nodule on image 13 series 9 with additional 3 mm nodule of the left upper lobe on image 15 series 9. Left subclavian pacer with adjacent inflammatory stranding and trace subcutaneous emphysema, likely postprocedural. IMPRESSION: 1. Unremarkable CTA of the head and neck. 2. No acute intracranial abnormality. 3. Please refer to the same day CTA of the chest for additional findings. 4. Mild paranasal sinus disease. ACT 112: Negative or not required by law. The above report was generated using voice recognition software. It may contain grammatical, syntax or spelling errors. Electronically signed by: Eduardo Feliciano M.D. 06/23/2024 4:20 PM Chest CTA 06/23/24 14:35 CT angio chest PE protocol CT DOSE: 2099.25 mGy.cm HISTORY: 48 years-old Female with recent pacemaker placed, swell and left facial wea. Acute chest pain with recent pacemaker placement TECHNIQUE: Multiple CTA images of the chest were obtained after the intravenous administration of 119 ml Optiray. Coronal and sagittal MIPS were obtained from the axial data set and were submitted for review. All measurements were obtained according to NASCET criteria. A dose lowering technique was utilized adhering to the principles of ALARA. COMPARISON: Chest radiograph of same day FINDINGS: CTA: Dual-lead left subclavian pacer. Electronic implantable device noted within the subcutaneous tissues of the left chest wall. Heart is borderline enlarged. No pericardial effusion. No thoracic aortic aneurysm or dissection. Central pulmonary emboli identified. The segmental and subsegmental branches are not well visualized secondary to contrast bolus timing. CT CHEST: Subcutaneous edema of the left chest wall with small focus of subcutaneous emphysema, likely postoperative. No pneumothorax, pleural effusion, airspace consolidation, overt pulmonary edema suspicious pulmonary nodule or mass. Mild rotator wall thickening. No acute upper abdominal abnormality-bypass. Nonspecific 11 mm arterially enhancing left hepatic lobe lesion on image 25, possibly a flash filling hemangioma. Cholecystectomy. Fracture. IMPRESSION: 1. Findings compatible with recent left subclavian cardiac pacer placement with expected postoperative changes. No postoperative fluid collection. 2. No pulmonary emboli identified. ACT 112: Negative or not required by law. The above report was generated using voice recognition software. It may contain grammatical, syntax or spelling errors. Electronically signed by: Eduardo Feliciano M.D. 06/23/2024 4:07 PM ECG Additional Comments: Read as accelerated junctional rhythm. Somewhat poor quality EKG. I do not see clear P waves, but overall EKG appears dampened. Poor R wave progression. Code Status & VTE Plan Code Status Full code per discussion with patient. VTE Prophylaxis Plan VTE Prophylaxis will be ordered: Yes PG Care Time/CCT Total # of Minutes Spent Total Time Spent with Patient: Total time spent is greater than 50% in coordination of care (as documented) at patient's floor/unit and/or counseling patient: Coding Level of Care Code 45932 INT INP/OBS CARE 2/55MIN Diagnoses Facial droop R29.810 Left facial numbness R20.0 Multiple sclerosis G35 A-fib I48.91 Rheumatoid arthritis M06.9 Hypothyroidism E03.9 HTN (hypertension) I10 Pacemaker Z95.0 Time Spent (min) 60
[2024-06-23] MEDS ORDERED: traZODone HCL 50 MG TAB PO PRN (21:00)
[2024-06-23] MEDS ORDERED: INFLUENZA VACC TS2024-25(6m+)/PF (IIV3) 0.5mL Syr IM ONE (21:19)
[2024-06-23] MEDS: clonazePAM 0.5 MG TAB PO SCH (22:18)
[2024-06-23] MEDS: PREGABALIN 150 MG CAP PO SCH (22:18)
[2024-06-23] MEDS: METHOCARBAMOL 500 MG TABLET PO SCH (22:19)
[2024-06-23] MEDS: rOPINIRole HCL 1 MG TABLET PO SCH (22:19)
[2024-06-23] MEDS: DULoxetine HCL 60 MG CAP PO SCH (22:19)
[2024-06-23] MEDS: TOPIRAMATE 100 MG TAB PO SCH (22:20)
[2024-06-23] MEDS: APIXABAN 5 MG TABLET PO SCH (22:20)
[2024-06-24] MEDS: ACETAMINOPHEN 325 MG TAB PO PRN (01:13)
[2024-06-24] MEDS: PANTOprazole 40 MG TAB PO SCH (05:41)
[2024-06-24] MEDS: LEVOTHYROXINE SODIUM 137 MCG TABLET PO SCH (05:41)
[2024-06-24 06:42] LABS: Hematocrit (blood only) 39.6 % (37.0-47.0); Hemoglobin 12.4 g/dl (12.0-16.0); Mean Corpuscular Hemoglobin 28.2 pg (25.0-34.0); Mean Corpuscular Hgb Conc 31.3 g/dL (32.0-36.0); Mean Platelet Volume 10.7 fL (9.4-12.4); Platelet Count 245 K/uL (130-400); RDW Coefficient of Variation 14.3 % (11.5-14.5)
--- NOTE | 2024-06-24 07:00 | Hospitalist Progress Note ---
Date of Service June 24, 2024 Assessment & Plan (1) Facial droop: (2) Left facial numbness: (3) Multiple sclerosis: (4) A-fib: (5) Rheumatoid arthritis: (6) Hypothyroidism: (7) HTN (hypertension): (8) Pacemaker: Plan Komal 48 y/o with medical history of MS, Afib, RA, hypothyroidism, mood disorders admitted for facial weakness/numbness, L arm numbness, and pain at site of pacemaker recently placed among other issues. Facial droop/numbness and tingling/arm numbness and tingling -Subacute CVA or TIA vs. Lopez's Palsy vs. MS or migraine related symptoms. -Admitted on Tele monitor: NSR throughout. -GCS: 15/15, Stroke scale 2 -Persistent facial droop this AM as well. No new neurological signs compared to admission. -MRI w and w/o awaited; Pacemaker compatible for MRI. -Continue thiamine and folic acid S/P recent placement of pacemakerr - Pacemaker 1 weeks ago for ? Heart block ; feels like it swollen around it she has pain along the pacemaker up the neck and down the arm. - No signs of infection. Intact dressing, no soakage, no discharge. - She has F/U this with her cardio at [place]. - ECG: Normal sinus rhythm, Low voltage QRS, Poor R wave progression, consider anterior [place] vs. lead placement vs. LVH A fib (controlled) - Tele: NSR, with controlled HR - Continue Eliquis 5 mg bid - Metoprolol 25 mg BID MS - Had 2 major flare of MS; 2nd time had some issue with hearing; given steroid for 3 days both time. Does not remember about 1st flare. - Under Rebif Rebidose 44 mcg three times weekly. - No recent flares after 2020. - MRI w and w/o ordered; Pacemaker compatible for MRI. RA -Will continue home Leflunomide 20 mg daily Hypothyroidism -Continue Synthroid 137 mcg daily Hypertension: BP: 116-164/ 70-97 after admission. Today mornin/70 Not under any antihypertensives before. Continue monitoring; if persistently high Mood disorder -- anxiety/depression/Psychiatric dx -Continue Abilify 15 mg daily -Cont Duloxetine 60 mg daily -Cont Klonopin 0.5 BID -Cont Modafinil 100 mg daily -Cont Trazodone 150 mg daily -Patient states she does not have a dx of seizures anymore, but on Topiramate 100 mg BID, presumably for mood stabilization DVT PPx -- On Eliquis Code Status -- Full code Admission and Anticipated Discharge Date Admission Date: June 23, 2024 Supervising Physician Co-Signing Physician Notes I personally examined the patient and verified all foster points of history and exam, discussed case, and agree with decision making with Dr Starks feeling a little better but L facial/mouth droop and some numbness persists. vitals noted nad heent nc at mmm slight L facial droop most pronounced at corner of mouth L sided numbness/weakness - ?MS flare vs cardioembolic (afib but had to be off eliquis several days last week for pacer placement) would be main ddx. MRI would largely help distinguish - if MS would then obviously want to proceed with more aggressive MS focused treatment (ie steroids) whereas if cardioembolic - PT/OT but since back on eliquis and doesn't appear to have significant atherosclerosis treatment would largely be rehab and secondary risk reduction with the eliquis she is already on. while unlikely, vasculitis on ddx if all else negative. if MRI cannot be done at all, consider neuro eval to help distinguish otherwise as above Subjective Today morning Komal was sitting on her bed with breakfast on table. She still feels she has issue with her face and arms. Her son noticed her left corner of mouth drooping on Tuesday, she never had these symptoms before. He feels some crawling sensation in her face on left side from forehead to chin. Able to swallow, eat , drink, walk, close eyes without any problems. No issue of ear pain or ringing sensation. No bowel and bladder issue. Review of Systems Review of Systems: As per HPI Constitutional: no fever Eyes: no diplopia and no problem reported Ear, Nose, Mouth, Throat: no ear pain, no tinnitus, no hearing loss, no di zziness and no nasal congestion Respiratory: no cough Gastrointestinal: no nausea and no pain with swallowing Genitourinary: no dysuria and no urinary frequency Musculoskeletal: as per Subjective / HPI and + muscle weakness; no limited range of motion Weakness in her left arm from shoulder to hands. Tingling sensation. Neurologic: + paresthesia and + radiating pain; no g ait abnormality, no paralysis, no tremor(s), no seizure-like activity, no headache(s), no abnormal speech, no behavioral changes and no confusion Some abnormal sensation in left side of her face; feels like crawling Psychiatric: no behavioral changes Physical Exam Physical Exam: Constitutional: Well appearing, No acute distress, PILCCOD: Negative HEENT: Atraumatic, Normocephalic, No conjunctival injection CVS: S1 S2 no murmur, Regular Rhythm, no LE edema Respiratory: BL equal air entry with NVBS. No rhonchi, wheezes, or crackles. No increased work of breathing GI: Soft, Nondistended, Nontender, Normal Bowel sounds + MSK: No gross deformities noted, decrease handgrip on left compared to right. Skin: Warm, Dry, No rashes, pacemaker in left chest with multiple Steri-Strips, mildly swollen, non tender, no abnormal discharge, non foul smelling Neuro: Alert, Oriented to TPP, Decreased and abnormal sensation on V1, V1, V3 of trigeminal N in Left side of face, decrease handgrip on left compared to right. Mild droop of angle of mouth in left, paucity of nasolabial fold on left, not absent. Can't puff cheeks on left. Forehead line visible, no issue with eye closing, no eye tearing, droop on BL side. Rest cranial Nerve exam normal. Psych: Mood and Affect congruent, Cooperative on exam Results & Data Results & Data Vital Signs (Past 12 Hours) Vital Signs Temp Pulse Pulse Pulse Resp BP Pulse Ox 06/24/24 02:58 36.5 C 62 18 127/80 96 06/23/24 22:38 36.5 C 62 18 135/85 98 06/23/24 21:52 36.8 C 75 14 144/84 H 96 06/23/24 21:40 65 06/23/24 20:30 74 06/23/24 20:00 79 20 147/75 H 97 O2 Del Method 06/24/24 02:58 Room Air 06/23/24 22:38 Room Air 06/23/24 21:52 Room Air 06/23/24 21:40 06/23/24 20:30 06/23/24 20:00 Room Air
[2024-06-24 07:11] LABS: BUN Creatinine Ratio 16.1 (10-20); Calcium 8.7 mg/dl (8.6-10.3); Creatinine Clr Calc Pharmacy 121.4 ml/min; Potassium 3.9 mmol/L (3.5-5.1)
--- NOTE | 2024-06-24 07:29 | Electrocardiogram Report ---
Test Reason : Blood Pressure : */* mmHG Vent. Rate : 75 BPM Atrial Rate : * BPM P-R Int : * ms QRS Dur : 80 ms QT Int : 370 ms P-R-T Axes : * 47 14 degrees QTcB Int : 413 ms Normal sinus rhythm Low voltage QRS Poor R wave progression, consider anterior [place] vs. lead placement vs. LVH Abnormal ECG No previous ECGs available Confirmed by Cristobal Murrell ([id number]) on 06/24/2024 7:29:26 AM Referred By: Confirmed By: Cristobal Murrell
[2024-06-24] MEDS: FLUTICASONE/VILANTEROL 100/25MCG 14 PUFFS/INHALER INH SCH (08:09)
[2024-06-24] MEDS: FOLIC ACID 1 MG TAB PO SCH (08:10)
[2024-06-24] MEDS: ARIPiprazole 15 MG TAB PO SCH (08:10)
[2024-06-24] MEDS: MONTELUKAST SODIUM 10 MG TABLET PO SCH (08:11)
[2024-06-24] MEDS: METOPROLOL SUCC 25MG EXT REL TAB PO SCH (08:11)
[2024-06-24] MEDS: CHOLECALCIFEROL 25 MCG (1000 UNITS) TAB PO SCH (08:11)
[2024-06-24] MEDS: OXYBUTYNIN CHLORIDE XL 5 MG TABCR PO SCH (08:11)
[2024-06-24] MEDS: LEFLUNOMIDE 10 MG TAB PO SCH (10:59)
--- NOTE | 2024-06-24 14:51 | Billing Data ---
Date of Service June 24, 2024 Coding Level of Care Code 83559 SUB INP/OBS CARE
--- NOTE | 2024-06-25 09:21 | Neurology Consultation ---
Date of Consultation June 25, 2024 Assessment & Plan (1) Facial droop: History of Present Illness Attending Physician: Vita León, History of Present Illness pt this morning feeling better and wants to go home. face also improved and no weakness. can't get mri due to not compatible pacer. CT and CTA head/neck negative. pt with MS and on rebif. chart reviewed. admission HPI: This is a 48-year-old female with extensive past medical history including MS (on Rebif Rebido), rheumatoid arthritis (on leflunomide), A-fib (on Eliquis), recent pacemaker placement for syncope/heart block (?), hypothyroidism, migraine headaches, hypertension, and mood disorder among other medical conditions who comes in with multiple complaints including weakness in the face, numbness and tingling of the face and left arm,left-sided facial droop, andpain in chest at site of recent pacemaker. Patient's recent history of the following: She states that last week she was at some sort of festival or event where she had an episode of syncope. She has a loop recorder which showed a sinus pause. She was taking to [facility], and after workup was released. She then contacted her architectural sales consultant on Tuesday, and he had her brought in and had a pacemaker placed on Tuesday. She was discharged on Tuesday afternoon in stable condition. She states she was doing okay at home other than some pain in the left chest at the site of the pacemaker. Last night she states that she developed some weakness, possibly numbness and tingling of her face, as well as possibly in the left arm. She also had some pain in the left chest that she thought was worsening. And she noted possible facial droop (though this may have been noticed this morning). Patient denies any headache. Denies any visual disturbance or visual loss. Denies any difficulty with speech or swallowing. Denies any focal weakness in 1 arm or 1 leg. Denies chest pain. Patient denies any fevers, chills, nausea, vomiting, diarrhea. While she does note some pain at the pacemaker site, there is no significant redness there. There is no drainage. There is no purulence. Patient notes that her last MS flare was in approximately 2020, and she has otherwise been stable on her medications since then. Allergies Allergy/AdvReac Type Severity Reaction Status Date / Time codeine Allergy Severe Anaphylaxis Unverified 06/23/24 16:17 methimazole Allergy Severe Unknown Unverified 06/23/24 16:17 Sulfa (Sulfonamide Allergy Severe Hives Unverified 06/23/24 16:17 Antibiotics) glatiramer (copolymer 1) Allergy Mild Unknown Unverified 06/23/24 16:17 [From Copaxone] hydroxychloroquine AdvReac Severe Blurry Unverified 06/23/24 16:17 [From Plaquenil] Vision NSAIDS (Non-Steroidal AdvReac Severe Unknown Unverified 06/23/24 16:17 Anti-Inflamma Home Medications Medication Instructions Recorded Confirmed Type apixaban 5 mg tablet (Eliquis) 5 mg PO BID 06/23/24 06/23/24 History aripiprazole 15 mg tablet 15 mg PO QAM 06/23/24 06/23/24 History azelastine 137 mcg (0.1 %) nasal 137 mcg intranasal BID 06/23/24 06/23/24 History spray hcilksjzbg-hqkalruhsmuuy-vzswlzqs See Rx Instructions .Route 06/23/24 06/23/24 History 50 mg-325 mg-40 mg tablet .COMPLEX PRN Headache cetirizine 10 mg tablet See Rx Instructions .Route .COMPLEX 06/23/24 06/23/24 History cholecalciferol (vitamin D3) 50 See Rx Instructions .Route .COMPLEX 06/23/24 06/23/24 History mcg (2,000 unit) capsule (Vitamin D3) clonazepam 0.5 mg tablet See Rx Instructions .Route .COMPLEX 06/23/24 06/23/24 History cyanocobalamin (vitamin B-12) See Rx Instructions .Route .COMPLEX 06/23/24 06/23/24 History 1,000 mcg/mL injection solution duloxetine 60 mg capsule,delayed See Rx Instructions .Route .COMPLEX 06/23/24 06/23/24 History release epinephrine 0.3 mg/0.3 mL See Rx Instructions .Route 06/23/24 06/23/24 History injection, auto-injector .COMPLEX PRN Allergy Symptoms folic acid 1 mg tablet See Rx Instructions .Route .COMPLEX 06/23/24 06/23/24 H istory interferon beta-1a (albumin) 44 See Rx Instructions .Route .COMPLEX 06/23/24 06/23/24 History mcg/0.5 mL subcutaneous pen injector (Rebif Rebidose) leflunomide 20 mg tablet See Rx Instructions .Route .COMPLEX 06/23/24 06/23/24 History levothyroxine 137 mcg tablet See Rx Instructions .Route .COMPLEX 06/23/24 06/23/24 History lorazepam 0.5 mg tablet See Rx Instructions .Route .COMPLEX 06/23/24 06/23/24 History methocarbamol 500 mg tablet See Rx Instructions .Route .COMPLEX 06/23/24 06/23/24 History metoprolol succinate 25 mg See Rx Instructions .Route .COMPLEX 06/23/24 06/23/24 History tablet,extended release 24 hr modafinil 200 mg tablet See Rx Instructions .Route .COMPLEX 06/23/24 06/23/24 History mometasone-formoterol HFA 100 See Rx Instructions .Route .COMPLEX 06/23/24 06/23/24 History mcg-5 mcg/actuation aerosol inhaler (Dulera) montelukast 10 mg tablet See Rx Instructions .Route .COMPLEX 06/23/24 06/23/24 History omeprazole 40 mg capsule,delayed See Rx Instructions .Route .COMPLEX 06/23/24 06/23/24 History release ondansetron 8 mg disintegrating See Rx Instructions .Route .COMPLEX 06/23/24 06/23/24 History tablet potassium chloride 20 mEq See Rx Instructions .Route .COMPLEX 06/23/24 06/23/24 History tablet,extended release(part/cryst) pregabalin 150 mg capsule See Rx Instructions .Route .COMPLEX 06/23/24 06/23/24 History rimegepant 75 mg disintegrating See Rx Instructions .Route .COMPLEX 06/23/24 06/23/24 History tablet (Nurtec ODT) ropinirole 1 mg tablet See Rx Instructions .Route .COMPLEX 06/23/24 06/23/24 History topiramate 100 mg tablet See Rx Instructions .Route .COMPLEX 06/23/24 06/23/24 History trazodone 150 mg tablet See Rx Instructions .Route .COMPLEX 06/23/24 06/23/24 History trospium 20 mg tablet See Rx Instructions .Route .COMPLEX 06/23/24 06/23/24 History Patient History Social History Smoking Status: Never smoker Tobacco Type: E-cigarettes / Vaping Second Hand Exposure: No; Do You Dip or Chew Tobacco: No; Hx Alcohol Use: No Hx Substance Use: No Preferred Language: Ecuadorean Communication Ability: Effective Multicut Line Operator Required: No Beliefs That Will Affect Care: None Current Living Situation: Family Feels Safe at Home: Yes Exam (Neuro) Physical Exam: HEENT: normocephalic grossly Neuro: Mental: AOx4, fluent speech, normal comprehension, no apraxia, no L/R confusion, no neglect CN: PERRL, Full EOM, symmetric face, subjective face sensory change on left. no taste change per pt. grossly full ROM neck Motor: No abnormal movements, normal tone, 5/5 t/o bilaterally t/o with some effort dependent give way weakness on left upper arm. Sens: intact to touch b/l grossly except "odd tingling" left arm and face that is chronic in matire/ Coord: intact FNT b/l with nonorganic appearing left arm dysmetria. DTR: 2+ sym b/l Gait: intact per pt. Impression: 48 yo female with resolved acute left face droop per report and left arm numbness in setting of recent pacer implant and hx of MS. Overall picture not suggestive of stroke or MS at this point. ddx including olvera's palsy vs referred pain from the pacer placement/incision. Recommendations: no further stroke work up needed. empiric tx with steroid, prednisone 60mg daily for 2 days and 40mg po daily for 3 days and stop. f/u with cardiology for the pacer continue w/u with her neurologist as planned. pt ok for discharge from neuro stand point. Chart reviewed I have spent more than 50% educating patient about potential diagnosis and neurological evaluation and coordinating care with patient's treatment team. Total time spent (including chart review and coordination of care): 50 min (this includes chart review). Results & Data Vital Signs (Past 12 Hours) Vital Signs Temp Pulse Pulse Resp BP Pulse Ox O2 Del Method 06/25/24 07:46 36.6 C 62 18 126/88 96 Room Air 06/25/24 03:10 36.3 C L 66 18 126/79 98 Room Air 06/24/24 22:54 36.6 C 62 18 123/80 95 Room Air 06/24/24 21:46 63 PG Care Time/CCT Total # of Minutes Spent Total Time Spent with Patient: Total time spent is greater than 50% in coordination of care (as documented) at patient's floor/unit and/or counseling patient: Coding Level of Care Code 90439 IN/OBS CONSULT LVL 3,45M Diagnoses Facial droop R29.810
--- NOTE | 2024-06-25 10:04 | Discharge Summary ---
Date of Service June 25, 2024 Admission HPI Per Admitting Provider This is a 48-year-old female with extensive past medical history including MS (on Rebif Rebido), rheumatoid arthritis (on leflunomide), A-fib (on Eliquis), recent pacemaker placement for syncope/heart block (?), hypothyroidism, migraine headaches, hypertension, and mood disorder among other medical conditions who comes in with multiple complaints including weakness in the face, numbness and tingling of the face and left arm,left-sided facial droop, andpain in chest at site of recent pacemaker. Patient's recent history of the following: She states that last week she was at some sort of festival or event where she had an episode of syncope. She has a loop recorder which showed a sinus pause. She was taking to [facility], and after workup was released. She then contacted her hand baseball sewer on Tuesday, and he had her brought in and had a pacemaker placed on Tuesday. She was discharged on Tuesday afternoon in stable condition. She states she was doing okay at home other than some pain in the left chest at the site of the pacemaker. Last night she states that she developed some weakness, possibly numbness and tingling of her face, as well as possibly in the left arm. She also had some pain in the left chest that she thought was worsening. And she noted possible facial droop (though this may have been noticed this morning). Patient denies any headache. Denies any visual disturbance or visual loss. Denies any difficulty with speech or swallowing. Denies any focal weakness in 1 arm or 1 leg. Denies chest pain. Patient denies any fevers, chills, nausea, vomiting, diarrhea. While she does note some pain at the pacemaker site, there is no significant redness there. There is no drainage. There is no purulence. Patient notes that her last MS flare was in approximately 2020, and she has otherwise been stable on her medications since then. 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 Skin: warm, dry, intact HEENT: NC/AT, anicteric sclera, conjunctiva without injection, moist mucus membranes. Heart: +S1/S2, regular, no m/r/g Lungs: equal air entry bilaterally, no rales/rhonchi/wheezes Abd: +BS, soft, NT/ND Ext: warm, no clubbing/cyanosis or edema, Richa's neg. Neuro: nonfocal, speech intact, no facial droop, moving all extremities. Discharge Data Allergies Allergy/AdvReac Type Severity Reaction Status Date / Time codeine Allergy Severe Anaphylaxis Unverified 06/23/24 16:17 methimazole Allergy Severe Unknown Unverified 06/23/24 16:17 Sulfa (Sulfonamide Allergy Severe Hives Unverified 06/23/24 16:17 Antibiotics) glatiramer (copolymer 1) Allergy Mild Unknown Unverified 06/23/24 16:17 [From Copaxone] hydroxychloroquine AdvReac Severe Blurry Unverified 06/23/24 16:17 [From Plaquenil] Vision NSAIDS (Non-Steroidal AdvReac Severe Unknown Unverified 06/23/24 16:17 Anti-Inflamma Consultations 06/23/24 16:42 ED Decision to Admit Stat 06/24/24 18:00 Consult Neurology Routine Ordered Studies Laboratory Results WBC 4.70 K/ul (4.8-10.8) L 06/24/24 05:51 RBC 4.40 M/uL (4.20-5.40) 06/24/24 05:51 Hgb 12.4 g/dl (12.0-16.0) 06/24/24 05:51 Hct 39.6 % (37.0-47.0) 06/24/24 05:51 MCV 90.0 fL (80.0-100.0) 06/24/24 05:51 MCH 28.2 pg (25.0-34.0) 06/24/24 05:51 MCHC 31.3 g/dL (32.0-36.0) L 06/24/24 05:51 RDW Std Deviation 47.0 fL (36.4-46.3) H 06/24/24 05:51 RDW Coeff of Myrna 14.3 % (11.5-14.5) 06/24/24 05:51 Plt Count 245 K/uL (130-400) 06/24/24 05:51 MPV 10.7 fL (9.4-12.4) 06/24/24 05:51 Immature Gran % (Auto) 0.2 % 06/23/24 14:12 Neut % (Auto) 61.9 % 06/23/24 14:12 Lymph % (Auto) 28.1 % 06/23/24 14:12 [place] % (Auto) 9.6 % 06/23/24 14:12 Eos % (Auto) 0.0 % 06/23/24 14:12 Baso % (Auto) 0.2 % 06/23/24 14:12 Neut # (Auto) 3.18 K/uL (1.40-6.50) 06/23/24 14:12 Lymph # (Auto) 1.44 K/uL (1.20-3.40) 06/23/24 14:12 [place] # (Auto) 0.49 K/uL (0.11-0.59) 06/23/24 14:12 Eos # (Auto) 0.00 K/uL (0.00-0.50) 06/23/24 14:12 Baso # (Auto) 0.01 K/uL (0.00-0.20) 06/23/24 14:12 Immature Gran # (Auto) 0.01 K/uL (0.01-0.20) 06/23/24 14:12 PT 10.0 Seconds (9.0-12.0) 06/23/24 14:12 INR 0.9 (0.9-1.1) 06/23/24 14:12 APTT 30 Seconds (21-31) 06/23/24 14:12 PTT Ratio 1.1 06/23/24 14:12 Sodium 140 mmol/L (136-145) 06/24/24 05:51 Potassium 3.9 mmol/L (3.5-5.1) 06/24/24 05:51 Chloride 112 mmol/L (98-107) H 06/24/24 05:51 Carbon Dioxide 25 mmol/L (21-32) 06/24/24 05:51 Anion Gap 3 (3-11) 06/24/24 05:51 BUN 10 mg/dl (6-23) 06/24/24 05:51 Creatinine 0.62 mg/dl (0.6-1.2) 06/24/24 05:51 Est Cr Clr Drug Dosing 121.4 ml/min 06/24/24 05:51 eGFR 110.46 06/24/24 05:51 BUN/Creatinine Ratio 16.1 (10-20) 06/24/24 05:51 Glucose 94 mg/dl (70-99(Fasting)) 06/24/24 05:51 POC Glucose 77 mg/dl (70-99) 06/23/24 14:14 Calcium 8.7 mg/dl (8.6-10.3) 06/24/24 05:51 Magnesium 2.0 mg/dl (1.7-2.4) 06/23/24 14:12 Total Bilirubin 0.3 mg/dl (0.2-1.0) 06/23/24 14:12 AST 21 U/L (13-39) 06/23/24 14:12 ALT 24 U/L (7-52) 06/23/24 14:12 Alkaline Phosphatase 104 U/L (34-104) 06/23/24 14:12 Troponin I High Sens 5.6 pg/ml (0-14) 06/23/24 14:12 Total Protein 6.4 gm/dl (6.0-8.3) 06/23/24 14:12 Albumin 4.0 gm/dl (3.4-5.0) 06/23/24 14:12 Globulin 2.4 gm/dl (2.5-4.0) L 06/23/24 14:12 Albumin/Globulin Ratio 1.7 (0.9-2) 06/23/24 14:12 Impressions Chest X-Ray 06/23/24 14:26 XR chest 1V portable HISTORY: 48 years-old Female neuro deficit, acute stroke suspected acute strokelike symptoms COMPARISON: None TECHNIQUE: AP view of the chest FINDINGS: Cardiac silhouette is enlarged. Dual lead left subclavian pacer. An electronic device projects over the left heart border. No pneumothorax, pleural effusion, airspace consolidation or pulmonary edema. Bones appear intact. IMPRESSION: No acute process. ACT 112: Negative or not required by law. The above report was generated using voice recognition software. It may contain grammatical, syntax or spelling errors. Electronically signed by: Eduardo Feliciano M.D. 06/23/2024 2:[address] 06/23/24 14:26 CT angio head w con, CT head/brain wo con, CT angio neck with con CLINICAL HISTORY: 48 years-old Female with neuro deficit, acute stroke suspected. Acute stroke like symptoms COMPARISON STUDY: None TECHNIQUE: Unenhanced axial CT scan of the brain is performed. Subsequently, following the IV administration of 119 cc of Optiray, CT angiogram of the head and neck was performed. Images are reviewed in the axial, sagittal, and coronal planes. 3-D MIPS images are created and assessed. IV contrast was administered without complication. All measurements were obtained according to NASCET criteria. A dose lowering technique was utilized adhering to the principles of ALARA. FINDINGS: CT BRAIN: There is no acute intracranial hemorrhage, midline shift, hydrocephalus, intracranial mass, territorial ischemia or abnormal extra-axial collections. No abnormal intra-axial or extra-axial enhancement. Mastoid air cells and middle ear cavities are clear. No calvarial fracture. Mild polypoid mucosal thickening of the right maxillary and sphenoid sinuses.. CT ANGIOGRAM OF THE HEAD AND NECK: Three-vessel morphology of the thoracic aortic arch. Patency of the innominate and subclavian arteries. Patency of the common and internal carotid arteries. Bilateral anterior and middle cerebral arteries are also patent. The vertebrobasilar system and posterior cerebral arteries are widely patent. There is no aneurysm, high-grade stenosis, or proximal branch occlusion identified. Du ral sinuses appear patent. The lung apices appear clear. Developmental incomplete bony fusion involves the arch of C1. No pneumothorax. Mild bronchial wall thickening. 3 mm likely benign right upper lobe pulmonary nodule on image 13 series 9 with additional 3 mm nodule of the left upper lobe on image 15 series 9. Left subclavian pacer with adjacent inflammatory stranding and trace subcutaneous emphysema, likely postprocedural. IMPRESSION: 1. Unremarkable CTA of the head and neck. 2. No acute intracranial abnormality. 3. Please refer to the same day CTA of the chest for additional findings. 4. Mild paranasal sinus disease. ACT 112: Negative or not required by law. The above report was generated using voice recognition software. It may contain grammatical, syntax or spelling errors. Electronically signed by: Eduardo Feliciano M.D. 06/23/2024 4:20 PM Head CTA 06/23/24 14:26 CT angio head w con, CT head/brain wo con, CT angio neck with con CLINICAL HISTORY: 48 years-old Female with neuro deficit, acute stroke suspected. Acute stroke like symptoms COMPARISON STUDY: None TECHNIQUE: Unenhanced axial CT scan of the brain is performed. Subsequently, following the IV administration of 119 cc of Optiray, CT angiogram of the head and neck was performed. Images are reviewed in the axial, sagittal, and coronal planes. 3-D MIPS images are created and assessed. IV contrast was administered without complication. All measurements were obtained according to NASCET criteria. A dose lowering technique was utilized adhering to the principles of ALARA. FINDINGS: CT BRAIN: There is no acute intracranial hemorrhage, midline shift, hydrocephalus, intracranial mass, territorial ischemia or abnormal extra-axial collections. No abnormal intra-axial or extra-axial enhancement. Mastoid air cells and middle ear cavities are clear. No calvarial fracture. Mild polypoid mucosal thickening of the right maxillary and sphenoid sinuses.. CT ANGIOGRAM OF THE HEAD AND NECK: Three-vessel morphology of the thoracic aortic arch. Patency of the innominate and subclavian arteries. Patency of the common and internal carotid arteries. Bilateral anterior and middle cerebral arteries are also patent. The vertebrobasilar system and posterior cerebral arteries are widely patent. There is no aneurysm, high-grade stenosis, or proximal branch occlusion identified. Dural sinuses appear patent. The lung apices appear clear. Developmental incomplete bony fusion involves the arch of C1. No pneumothorax. Mild bronchial wall thickening. 3 mm likely benign right upper lobe pulmonary nodule on image 13 series 9 with additional 3 mm nodule of the left upper lobe on image 15 series 9. Left subclavian pacer with adjacent inflammatory stranding and trace subcutaneous emphysema, likely postprocedural. IMPRESSION: 1. Unremarkable CTA of the head and neck. 2. No acute intracranial abnormality. 3. Please refer to the same day CTA of the chest for additional findings. 4. Mild paranasal sinus disease. ACT 112: Negative or not required by law. The above report was generated using voice recognition software. It may contain grammatical, syntax or spelling errors. Electronically signed by: Eduardo Feliciano M.D. 06/23/2024 4:20 PM Neck CTA 06/23/24 14:26 CT angio head w con, CT head/brain wo con, CT angio neck with con CLINICAL HISTORY: 48 years-old Female with neuro deficit, acute stroke suspected. Acute stroke like symptoms COMPARISON STUDY: None TECHNIQUE: Unenhanced axial CT scan of the brain is performed. Subsequently, following the IV administration of 119 cc of Optiray, CT angiogram of the head and neck was performed. Images are reviewed in the axial, sagittal, and coronal planes. 3-D MIPS images are created and assessed. IV contrast was administered without complication. All measurements were obtained according to NASCET criteria. A dose lowering technique was utilized adhering to the principles of ALARA. FINDINGS: CT BRAIN: There is no acute intracranial hemorrhage, midline shift, hydrocephalus, intracranial mass, territorial ischemia or abnormal extra-axial collections. No abnormal intra-axial or extra-axial enhancement. Mastoid air cells and middle ear cavities are clear. No calvarial fracture. Mild polypoid mucosal thickening of the right maxillary and sphenoid sinuses.. CT ANGIOGRAM OF THE HEAD AND NECK: Three-vessel morphology of the thoracic aortic arch. Patency of the innominate and subclavian arteries. Patency of the common and internal carotid arteries. Bilateral anterior and middle cerebral arteries are also patent. The vertebrobasilar system and posterior cerebral arteries are widely patent. There is no aneurysm, high-grade stenosis, or proximal branch occlusion identified. Dural sinuses appear patent. The lung apices appear clear. Developmental incomplete bony fusion involves the arch of C1. No pneumothorax. Mild bronchial wall thickening. 3 mm likely benign right upper lobe pulmonary nodule on image 13 series 9 with additional 3 mm nodule of the left upper lobe on image 15 series 9. Left subclavian pacer with adjacent inflammatory stranding and trace subcutaneous emphysema, likely postprocedural. IMPRESSION: 1. Unremarkable CTA of the head and neck. 2. No acute intracranial abnormality. 3. Please refer to the same day CTA of the chest for additional findings. 4. Mild paranasal sinus disease. ACT 112: Negative or not required by law. The above report was generated using voice recognition software. It may contain grammatical, syntax or spelling errors. Electronically signed by: Eduardo Feliciano M.D. 06/23/2024 4:20 PM Chest CTA 06/23/24 14:35 CT angio chest PE protocol CT DOSE: 2099.25 mGy.cm HISTORY: 48 years-old Female with recent pacemaker placed, swell and left facial wea. Acute chest pain with recent pacemaker placement TECHNIQUE: Multiple CTA images of the chest were obtained after the intravenous administration of 119 ml Optiray. Coronal and sagittal MIPS were obtained from the axial data set and were submitted for review. All measurements were obtained according to NASCET criteria. A dose lowering technique was utilized adhering to the principles of ALARA. COMPARISON: Chest radiograph of same day FINDINGS: CTA: Dual-lead left subclavian pacer. Electronic implantable device noted within the subcutaneous tissues of the left chest wall. Heart is borderline enlarged. No pericardial effusion. No thoracic aortic aneurysm or dissection. Central pulmonary emboli identified. The segmental and subsegmental branches are not well visualized secondary to contrast bolus timing. CT CHEST: Subcutaneous edema of the left chest wall with small focus of subcutaneous emphysema, likely postoperative. No pneumothorax, pleural effusion, airspace consolidation, overt pulmonary edema suspicious pulmonary nodule or mass. Mild rotator wall thickening. No acute upper abdominal abnormality-bypass. Nonspecific 11 mm arterially enhancing left hepatic lobe lesion on image 25, possibly a flash filling hemangioma. Cholecystectomy. Fracture. IMPRESSION: 1. Findings compatible with recent left subclavian cardiac pacer placement with expected postoperative changes. No postoperative fluid collection. 2. No pulmonary emboli identified. ACT 112: Negative or not required by law. The above report was generated using voice recognition software. It may contain grammatical, syntax or spelling errors. Electronically signed by: Eduardo Feliciano M.D. 06/23/2024 4:07 PM 06/23/24 14:26 CT angio head w con Stat CT angio neck with con Stat CT head/brain wo con Stat 06/23/24 14:35 CT angio chest PE protocol Stat Hospital Course (1) Facial droop: (2) Left facial numbness: (3) Multiple sclerosis: (4) A-fib: (5) Rheumatoid arthritis: (6) Hypothyroidism: (7) HTN (hypertension): (8) Pacemaker: Plan Komal 48 y/o with medical history of MS, Afib, RA, hypothyroidism, mood disorders admitted for facial weakness/numbness, L arm numbness, and pain at site of pacemaker recently placed among other issues. Facial droop/numbness and tingling/arm numbness and tingling -Subacute CVA or TIA vs. Lopez's Palsy vs. MS or migraine related symptoms. -Admitted on Tele monitor: NSR throughout. -GCS: 15/15, Stroke scale 2 -Persistent facial droop this AM as well. No new neurological signs compared to admission. -Neurology consulted and recommend steroid therapy with a diagnosis of Lopez's Palsy -Continue thiamine and folic acid S/P recent placement of pacemakerr - Pacemaker 1 weeks ago for sinus arrest; feels like it swollen around it she has pain along the pacemaker up the neck and down the arm. - No signs of infection. Intact dressing, no soakage, no discharge. - She has F/U this with her cardio at [place]. - ECG: Normal sinus rhythm, Low voltage QRS, Poor R wave progression, consider anterior OH vs. lead placement vs. LVH - Possible ongoing referred pain from pacemaker placement A fib (controlled) - Tele: NSR, with controlled HR - Continue Eliquis 5 mg bid - Metoprolol 25 mg BID MS - Had 2 major flare of MS; 2nd time had some issue with hearing; given steroid for 3 days both time. Does not remember about 1st flare. - Under Rebif Rebidose 44 mcg three times weekly. - No recent flares after 2020. - MRI w and w/o ordered; Pacemaker compatible for MRI. RA -Will continue home Leflunomide 20 mg daily Hypothyroidism -Continue Synthroid 137 mcg daily Hypertension: BP: 116-164/ 70-97 after admission. Today mornin/70 Not under any antihypertensives before. Continue monitoring; if persistently high Mood disorder -- anxiety/depression/Psychiatric dx -Continue Abilify 15 mg daily -Cont Duloxetine 60 mg daily -Cont Klonopin 0.5 BID -Cont Modafinil 100 mg daily -Cont Trazodone 150 mg daily -Patient states she does not have a dx of seizures anymore, but on Topiramate 100 mg BID, presumably for mood stabilization DVT PPx -- On Eliquis Code Status -- Full code Total Time Total Time Spent Total Time Spent (In Minutes): 34 min Total Time Includes: Examination of the Patient, Discharge Planning, Communication With Other Providers and Other Discharge Plan Discharge Items Patient Disposition: Home - Self-Care Reason For Visit: FACIAL DROOP Discharge Diagnosis: [place]om Palsy Activity: Resume your previous activity Non-emergency contact: Primary Care Provider and Neurologist Call non-emergency contact if: your symptoms worsen and your pain is not controlled Follow-up/Referrals: Brant Magaña MD [Primary Care Provider] - (PLEASE CALL YOUR PRIMARY CARE PROVIDER TO SCHEDULE A HOSPITAL DISCHARGE FOLLOW-UP APPOINTMENT WITHIN 7-10 DAYS) Diet: Regular Addtl Attending Provider Instructions: You were admitted to the hospital for left sided facial droop and numbness along with numbness and tingling of the left arm. You also recently had a pacemaker placed approximately 1 week ago due to sinus arrest for 16 seconds with associated syncope. The mild chest discomfort and left arm discomfort is likely due to referred pain from the pacemaker placement. Imaging at [facility] consisting of Chest CTA, Neck CTA, Head CTA, and Head CT was clear of any acute abnormalities or infarcts within the brain. A brain MRI was discussed to possibly further evaluate due to concern for stroke-like symptoms, however with the previous imaging all negative and incompatibility of the exam due to the pacemaker, a neurology consult was placed instead. Neurology recommended prednisone 60 mg daily for 2 days and 40 mg daily for 3 days before stopping this medication and also cleared you for discharge. Please follow up with your PCP and neurologist in the coming weeks after this hospital visit. A discharge summary will be sent to your primary care physician to ensure continuity of care. Please bring this discharge summary with you to your next office appointment so that your provider can review it at that time. Follow-up appointments: Make a follow-up appointment with your PCP within the next week. It is very important that you follow up with them shortly after discharge from the hospital Keep all your follow-up appointments as already scheduled. If you cannot make an appointment, notify your provider. Medications: Your medication list has been reviewed and reconciled upon discharge to ensure accuracy and continuity of care. An updated list of all your medications is included with your hospital discharge paperwork. Please review this list closely, and make note of any changes. We sent a new medication called Prednisone to your pharmacy. Take Prednisone 60 mg daily for 2 days and then continue with 40 mg daily for 3 days and then stop this medication If you have any issues filling these prescriptions, please call [phone] and ask to leave a message for Dr. Rm Hoyt. Take your medications as instructed; do not skip a dose of your medicines. Make sure all of your doctors know every medicine you are taking (including ihbc-dag-ntaugsr medicines, vitamins, and supplements). Call your primary care provider before taking any new medicines (including cbco-ixj-wvosurc medicines, vitamins, and supplements), because some of these may interact with your current medications, or may make your symptoms worse. Tell your primary care provider if you cannot afford your medications. CONTACT YOUR PRIMARY CARE PROVIDER if you experience any of the following: Difficulty following your treatment plan, or difficulty taking medications CALL 911 OR GO TO THE EMERGENCY DEPARTMENT if you experience any of the following: Sudden, severe abdominal pain or nausea/vomiting Severe chest pain, or chest pain that radiates (moves) to your jaw or arm Sudden, severe shortness of breath or difficulty breathing Thank you for allowing us to participate in your care. Pending Studies at Discharge: No Stand-Alone Forms: My [facility] [employer], Smoking Cessation Medications and DC Order Prescriptions: New prednisone 20 mg tablet 20 mg PO DAILY 5 Days Qty: 12 0RF Rx Instructions: Take 60mg (3 tabs) each day for the first two days (2 doses) and then continue with 40 mg (2 tabs) each day for the next 3 days (3 doses). Continued methocarbamol 500 mg tablet See Rx Instructions .ROUTE .COMPLEX Rx Instructions: Take 1 tablet by mouth twice a day levothyroxine 137 mcg tablet See Rx Instructions .ROUTE .COMPLEX Rx Instructions: TAKE ONE TABLET BY MOUTH DAILY ropinirole 1 mg tablet See Rx Instructions .ROUTE .COMPLEX Rx Instructions: Take 1 tablet by mouth twice a day cetirizine 10 mg tablet See Rx Instructions .ROUTE .COMPLEX Rx Instructions: TAKE 1 TABLET BY MOUTH DAILY clonazepam 0.5 mg tablet See Rx Instructions .ROUTE .COMPLEX Rx Instructions: Take 1 tablet by mouth twice a day omeprazole 40 mg capsule,delayed release(DR/EC) See Rx Instructions .ROUTE .COMPLEX Rx Instructions: Take 1 capsule by mouth once a day 30 MINUTES PRIOR TO BREAKFAST EVERY DAY. leflunomide 20 mg tablet See Rx Instructions .ROUTE .COMPLEX Rx Instructions: TAKE 1 TABLET BY MOUTH DAILY WITH FOOD mnqpbapovc-eugyfbrehscgi-wnoc 50-325-40 mg tablet See Rx Instructions .ROUTE .COMPLEX PRN (Reason: Headache) Rx Instructions: TAKE 1 TO 2 TABLETS BY MOUTH EVERY 4 HOURS NEEDED FOR MIGRAINES. MAXIMUM 6 TABLETS PER DAY. CONTINUING THERAPY ondansetron 8 mg tablet,disintegrating See Rx Instructions .ROUTE .COMPLEX Rx Instructions: DISSOLVE 1 TABLET ON TONGUE EVERY 8 HOURS NEEDED FOR NAUSEA potassium chloride 20 mEq tablet,ER particles/crystals See Rx Instructions .ROUTE .COMPLEX Rx Instructions: TAKE ONE TABLET TWICE DAILY modafinil 200 mg tablet See Rx Instructions .ROUTE .COMPLEX Rx Instructions: Take 1/2 tablet by mouth every morning lorazepam 0.5 mg tablet See Rx Instructions .ROUTE .COMPLEX Rx Instructions: TAKE ONE TABLET BY MOUTH TWICE DAILY FOR ANXIETY AND TAKE 1 OR 2 TABLETS AT BEDTIME FOR SLEEP cyanocobalamin (vitamin B-12) 1,000 mcg/mL solution See Rx Instructions .ROUTE .COMPLEX Rx Instructions: inject 1ml subcutaneousley ONCE WEEKLY trazodone 150 mg tablet See Rx Instructions .ROUTE .COMPLEX Rx Instructions: Take 1 tablet by mouth every night at bedtime as needed for sleep folic acid 1 mg tablet See Rx Instructions .ROUTE .COMPLEX Rx Instructions: TAKE ONE TABLET DAILY montelukast 10 mg tablet See Rx Instructions .ROUTE .COMPLEX Rx Instructions: Take 1 tablet by mouth once a day metoprolol succinate 25 mg tablet extended release 24 hr See Rx Instructions .ROUTE .COMPLEX Rx Instructions: TAKE ONE TABLET BY MOUTH DAILY azelastine 137 mcg (0.1 %) spray,non-aerosol 137 mcg intranasal BID epinephrine 0.3 mg/0.3 mL auto-injector See Rx Instructions .ROUTE .COMPLEX PRN (Reason: Allergy Symptoms) Rx Instructions: EPI PEN topiramate 100 mg tablet See Rx Instructions .ROUTE .COMPLEX Rx Instructions: TAKE ONE TABLET BY MOUTH TWICE DAILY aripiprazole 15 mg tablet 15 mg PO QAM trospium 20 mg tablet See Rx Instructions .ROUTE .COMPLEX Rx Instructions: TAKE ONE TABLET BY MOUTH TWICE DAILY duloxetine 60 mg capsule,delayed release(DR/EC) See Rx Instructions .ROUTE .COMPLEX Rx Instructions: Take 1 capsule by mouth twice a day pregabalin 150 mg capsule See Rx Instructions .ROUTE .COMPLEX Rx Instructions: TAKE ONE CAPSULE BY MOUTH TWICE DAILY cholecalciferol (vitamin D3) [Vitamin D3] 50 mcg (2,000 unit) capsule See Rx Instructions .ROUTE .COMPLEX Rx Instructions: TAKE ONE CAPSULE BY MOUTH DAILY Dulera 100-5 mcg/actuation HFA aerosol inhaler See Rx Instructions .ROUTE .COMPLEX Rx Instructions: Inhale 1 puff as directed twice a day Rinse mouth with water and spit after use. Eliquis 5 mg tablet 5 mg PO BID Rebif Rebidose 44 mcg/0.5 mL pen injector See Rx Instructions .ROUTE .COMPLEX Rx Instructions: INJECT BID A WEEK Nurtec ODT 75 mg tablet,disintegrating See Rx Instructions .ROUTE .COMPLEX Rx Instructions: TAKE 1 TABLET BY MOUTH EVERY OTHER DAY Discharge Orders: Discharge Order (Routine); Ordered 06/25/24 Ordered By: Rm Keyes/Other Patient Handouts: ED Lopez's Palsy Admission Data Admit Date/Time: 06/23/24 17:47 Attending Provider: Vita León Admit Provider: Michelle Walsh Primary Care Provider: Brant Magaña Other Providers: Michelle Walsh; Lucien Chun; Edu Raza; Meliza Brambila; Farideh Mauro; Chanda Rivers; Bolivar Keys Other Interventions: Discharge Summary Assessment (RN) Last Done: 06/25/24 12:26 Supervising Physician Co-Signing Physician Notes I personally examined the patient and verified foster points of history and exam, discussed case, and agree with decision making and plan documented by Dr. Hoyt. Patient with a complicated medical history including multiple sclerosis, rheumatoid arthritis, atrial fibrillation, and recent pacemaker placement for sinus arrest that was captured on a loop recorder she had implanted as a result of a syncopal event. Patient states that she was noted by family and friends to have left-sided facial droop with left-sided numbness and tingling on her face and arm. MRI was not performed due to lack of compatibility with recent pacemaker, CT imaging was negative. 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 Patient started on steroid taper, she has a appointment with neurology scheduled this week on the . She also has follow-up scheduled with her PCP 07/03/2024. Patient hopeful for discharge. She states she feels safe at home and that her sons will be caring for her. Resident Activity Tracking Resident Involvement: Resident Care Provided Care Provided: Adult Hospital Medicine
[2024-06-27 02:48] LABS: 18KDIGG Band REACTIVE; 23KDIGG Band NON-REACTIVE; 23KDIGM Band NON-REACTIVE; 28KDIGG Band NON-REACTIVE; 30KDIGG Band NON-REACTIVE; 39KDIGG Band NON-REACTIVE; 39KDIGM Band NON-REACTIVE; 41KDIGG Band REACTIVE; 41KDIGM Band NON-REACTIVE; 45KDIGG Band NON-REACTIVE; 58KDIGG Band NON-REACTIVE; 66KDIGG Band NON-REACTIVE; 93KDIGG Band NON-REACTIVE; Lyme Antibodies, WB IgG NEGATIVE (NEGATIVE); Lyme Antibodies, WB IgM NEGATIVE (NEGATIVE)
== END 2024-06-25 14:05 | disposition home or self-care (01) | DRG 74 ==
LOC: ED 13:55 → SUATTDRO 17:47 → 2N 17:47